=== PATIENT | male | born 1985 | race Caucasian/White ===

== ENCOUNTER → 2020-03-20 15:37 | Outpatient (CLI) | payer OTHER, MEDICAID, SELFPAY ==
--- NOTE | 2020-03-20 | DI.RAD.S_ITS ---
PROCEDURE: XR CHEST 2V INDICATIONS: CHEST PAIN WITH COUGH TECHNIQUE: 2 views of the chest were acquired. COMPARISON: None. FINDINGS: Surgical changes and devices: None. Lungs and pleura: Lungs are clear. No pleural effusions or pneumothorax. Mediastinum: Mediastinal contours are normal. Heart size is normal. Bones and chest wall: No suspicious bony abnormalities. Soft tissues appear unremarkable. IMPRESSION: No acute disease. Dictated by: Baldo Hameed M.D. on 03/20/2020 at 16:07 Approved by: Baldo Hameed M.D. on 03/20/2020 at 16:09
== END ==
PROVIDERS: PCP Student in an Organized Health Care Education/Training Program; Referring Provider Student in an Organized Health Care Education/Training Program; Visit Provider Student in an Organized Health Care Education/Training Program
DX: R07.9 Chest pain, unspecified (principal); R05 Cough
CPT/HCPCS: 71046

== ENCOUNTER 2021-04-04 13:53 | Inpatient (IN) | payer OTHER, MEDICAID, SELFPAY ==
[2021-04-04] VITALS (26 sets, daily range): BP systolic 105–148; BP diastolic 58–88; PULSE 94–117; RESP 22–47; TEMP 36.4–36.8; O2SAT 79–98; BMI 30.6
--- NOTE | 2021-04-04 14:16 | DI.RAD.S_ITS ---
PROCEDURE: XR CHEST 1V INDICATIONS: suspected sepsis TECHNIQUE: One view of the chest was acquired. COMPARISON: [facility], CR, XR CHEST 2V, 03/20/2020, 15:45. FINDINGS: Surgical changes and devices: None. Lungs and pleura: Patchy airspace opacities in bilateral mid to lower lung sue are seen. No pleural effusions or pneumothorax. Mediastinum: Mediastinal contours appear normal. Heart size is normal. Bones and chest wall: No suspicious bony lesions. Overlying soft tissues appear unremarkable. IMPRESSION: Finding is suggestive of bilateral mid to lower lung field infiltrates. No pleural effusion or pneumothorax. Dictated by: Jose Ayala M.D. on 04/04/2021 at 15:01 Approved by: Jose Ayala M.D. on 04/04/2021 at 15:02
--- NOTE | 2021-04-04 14:27 | ED.SOB ---
HPI - SOB/Dyspnea General Chief Complaint: Shortness of Breath/Dyspnea Stated Complaint: covid Time Seen by Provider: 04/04/21 14:07 Mode of arrival: Wheelchair History of Present Illness HPI Narrative: Patient is a 35-year-old male history of muscular dystrophy developmental delay presenting with hypoxia from primary care provider. Patient was seen by primary care provider today for mild diarrhea nausea vomiting nonproductive cough and fever for 5 days. Found to have an O2 of 83% on room air. He was sent to the ED for further evaluation. Patient and mother are both poor historians. Patient is complaining of dry throat. He is put on high-flow nasal cannula which does help. Related Data Home Medications Medication Instructions Recorded Confirmed omeprazole 20 mg capsule,delayed 20 mg PO QAM 04/04/21 04/04/21 release Allergies Allergy/AdvReac Type Severity Reaction Status Date / Time Sulfa (Sulfonamide Allergy Unknown Verified 04/04/21 14:34 Antibiotics) [SULFA (SULFONAMIDE ANTIBIOTICS)] promethazine [PROMETHAZINE] AdvReac Unknown Verified 04/04/21 14:34 Review of Systems Review of Systems ROS Unobtainable: Unobtainable due to medical condition and Unobtainable due to mental condition Patient History Medical History (Updated 04/04/21 @ 19:51 by Meryl Arango DO) Mild developmental delay Muscular dystrophy Social History household members: family and other Exam Initial Vital Signs Initial Vital Signs: Vital Signs Pulse Rate 113 H 04/04/21 14:08 Pulse Oximetry 85 L 04/04/21 14:08 GENERAL: Alert 35-year-old male with delay no acute distress HEENT: Head atraumatic,EOMI, pupils reactive, face symmetric, dry mucous membranes CARDIOVASCULAR: Regular rate and rhythm without murmurs, rubs or gallops. RESPIRATORY: Breath sounds equal bilaterally, no wheezes rales or rhonchi. ABDOMEN: Soft, nontender. Normoactive bowel sounds all 4 quadrants. No guarding or rebound. EXTREMITIES: Normal range of motion, no clubbing or edema. Neurovascularly intact NEUROLOGICAL: moving all extremities SKIN: Warm, dry, no laceration, no petechiae, no rashes or lesions. Course Orders Ordered: ED Orders 04/04/21 14:06 COVID19 - ADMIT ([employer] FINAL swab/PCR) Stat 04/04/21 14:15 Complete Blood Count AUTO DIFF Stat Comprehensive Metabolic Panel Stat D Dimer Stat Lactate (Lactic Acid) Stat Lipase Stat Procalcitonin Stat Prothrombin Time INR Stat Troponin & CK Cardiac Panel Stat 04/04/21 14:16 XR chest 1V Stat EKG-12 Lead Stat RT Consult Eval and Treat NOW 04/04/21 14:23 Blood Culture Stat 04/04/21 14:46 ABG [Arterial Blood Gas] Stat 04/04/21 15:24 CT angio chest PE protocol Stat 04/04/21 16:00 Ictotest Urine Stat Urinalysis and Microscopic Stat Urine Culture Stat 04/04/21 16:31 High flow/High humidity nasal NOW Acetaminophen (Acetaminophen 325 Mg Tablet) 650 mg PO Q6HR PRN PRN Reason: Fever Dexamethasone (Dexamethasone 10 Mg/Ml Vial) 6 mg IV DAILY QUINTIN Enoxaparin Sodium (Enoxaparin 40 Mg/0.4 Ml Syringe) 40 mg SUBCUT DAILY [facility] Dextrose/Sodium Chloride (Dextrose 5%-0.45% Ns) 1,000 mls @ 125 mls/hr IV CONT QUINTIN Last Admin: 04/04/21 18:44 Dose: 125 mls/hr Documented by: MSTEWART Remdesivir 100 mg/ Sodium (Chloride) 250 mls @ 250 mls/hr IV DAILY QUINTIN Stop: 04/08/21 09:59 Lorazepam (Lorazepam 2 Mg/Ml Inj) 2 mg IV Q6HR QUINTIN Morphine Sulfate (Morphine 2 Mg/Ml Inj) 2 mg IV Q4HR PRN PRN Reason: Pain, Mild (1-3) Naloxone HCl (Naloxone 0.4 Mg/Ml Vial) 0.2 mg IV Q2MIN PRN PRN Reason: Opiate Reversal Ondansetron HCl (Ondansetron 4 Mg/2 Ml Inj) 4 mg IV Q6HR PRN PRN Reason: Nausea And Vomiting Pantoprazole Sodium (Pantoprazole Dr 20 Mg Tablet) 20 mg PO 0600 QUINTIN Discontinued Medications Dexamethasone (Dexamethasone 10 Mg/Ml Vial) 6 mg IV NOW ONE Stop: 04/04/21 15:06 Last Admin: 04/04/21 15:39 Dose: 6 mg Documented by: NRHOVEL Sodium Chloride (Normal Saline 0.9%) 1,000 mls @ 1,000 mls/hr IV BOLUS ONE Stop: 04/04/21 15:14 Last Infusion: 04/04/21 16:25 Dose: 0 mls/hr Documented by: Admin: 04/04/21 14:35 Dose: 1,000 mls/hr Documented by: MALIK Sodium Chloride (Normal Saline 0.9%) 1,000 mls @ 1,000 mls/hr IV BOLUS ONE Stop: 04/04/21 15:26 Last Infusion: 04/04/21 17:16 Dose: 0 mls/hr Documented by: Admin: 04/04/21 15:39 Dose: 1,000 mls/hr Documented by: YEIMI Remdesivir 200 mg/ Sodium (Chloride) 250 mls @ 250 mls/hr IV NOW ONE Stop: 04/04/21 15:06 Last Infusion: 04/04/21 17:16 Dose: 0 mls/hr Documented by: Admin: 04/04/21 15:40 Dose: 250 mls/hr Documented by: YEIMI Lorazepam (Lorazepam 2 Mg/Ml Inj) 1 mg IV Q8HR PRN PRN Reason: air hunger Morphine Sulfate (Morphine 2 Mg/Ml Inj) 2 mg IV NOW ONE Stop: 04/04/21 14:31 Last Admin: 04/04/21 14:35 Dose: 2 mg Documented by: MALIK Ondansetron HCl (Ondansetron 4 Mg/2 Ml Inj) 4 mg IV NOW ONE Stop: 04/04/21 14:30 Last Admin: 04/04/21 14:35 Dose: 4 mg Documented by: MALIK Vital Signs Vital signs: Vital Signs - 8 hr 04/04/21 14:08 04/04/21 14:12 04/04/21 14:15 Temperature 98.3 F Pulse Rate 113 H 114 H 114 H Respiratory Rate 32 H Blood Pressure 127/73 Pulse Oximetry 85 L 79 L 94 04/04/21 14:30 04/04/21 14:45 04/04/21 15:00 Temperature Pulse Rate 115 H 112 H 111 H Respiratory Rate 47 H 37 H 38 H Blood Pressure 115/71 108/68 131/76 Pulse Oximetry 97 95 97 04/04/21 15:15 04/04/21 15:16 04/04/21 15:30 Temperature Pulse Rate 110 H 111 H 116 H Respiratory Rate 30 H 26 H 24 Blood Pressure 148/86 H 139/88 Pulse Oximetry 90 L 90 L 92 04/04/21 15:45 04/04/21 16:00 04/04/21 16:06 Temperature Pulse Rate 115 H 112 H 116 H Respiratory Rate 29 H 22 Blood Pressure 138/68 139/75 Pulse Oximetry 95 98 90 L 04/04/21 16:15 04/04/21 16:30 04/04/21 16:31 Temperature Pulse Rate 109 H 107 H 109 H Respiratory Rate 24 24 24 Blood Pressure 122/59 L 123/58 L 122/59 L Pulse Oximetry 91 91 91 04/04/21 16:43 04/04/21 16:45 Temperature Pulse Rate 114 H 117 H Respiratory Rate 24 26 H Blood Pressure 131/76 120/59 L Pulse Oximetry 91 93 MDM - SOB/Dyspnea Lab Data Result diagrams: 04/04/21 14:15 04/04/21 14:15 Labs: Lab Results 04/04/21 04/04/21 04/04/21 Range/Units 14:06 14:15 14:15 WBC 6.8 (4.5-11.0) X10^3/uL RBC 5.50 (4.5-5.9) X10^6/uL Hgb 13.4 L (13.5-17.5) g/dL Hct 41.4 (41-53) % MCV 75.3 L (80-100) fL MCH 24.4 L (26-34) PG MCHC 32.4 (30-36) % RDW 17.6 H (11.6-14.8) % Plt Count 195 (150-400) X10^3/uL Neut % (Auto) 82.4 H (50-75) % Lymph % (Auto) 10.1 L (25-40) % [place] % (Auto) 4.6 (3-14) % Eos % (Auto) 2.2 (2-4) % Baso % (Auto) 0.7 (0-2) % Neut # (Auto) 5600 (6138-8824) /uL Lymph # (Auto) 700 L (5851-2757) /uL [place] # (Auto) 300 (0-900) /uL Eos # (Auto) 100 (0-450) /uL Baso # (Auto) 0 (0-100) /uL PT (10.1-12.7) SECONDS INR (0.9-1.3) D-Dimer (<230) ng/mL ABG pH (7.35-7.45) ABG pCO2 (35-45) mmHg ABG pO2 (80-100) mmHg ABG HCO3 (22-26) mmol/L ABG Total CO2 (21-31) mmol/L ABG O2 Saturation (95-100) % ABG Base Excess (-2-2) mmol/L FiO2 Sodium 146 H (137-145) mmol/L Potassium 3.9 (3.4-5.1) mmol/L Chloride 112 H (98-107) mmol/L Carbon Dioxide 25 (22-32) mmol/L BUN 24 H (9-20) mg/dL Creatinine 1.11 (0.66-1.25) mg/dL Estimated GFR > 60.0 (>60) mL/min BUN/Creatinine Ratio 21.6 (6-22) Glucose 110 H (70-100) mg/dL Lactate (0.7-2.1) mmol/L Calcium 9.4 (8.4-10.2) mg/dL Total Bilirubin 0.7 (0.2-1.3) mg/dL AST 80 H (17-59) IU/L ALT 46 (<50) IU/L Alkaline Phosphatase 205 H (38-126) U/L Total Creatine Kinase (55-170) U/L CK-MB (CK-2) (<2.37) ng/mL CK-MB (CK-2) Rel Index (1.5-5.0) % Troponin I (0.01-0.034) ng/mL Total Protein 7.3 (6.3-8.2) g/dL Albumin 3.7 (3.5-5.0) g/dL Globulin 3.6 (1.7-4.1) g/dL Albumin/Globulin Ratio 1.0 (1.0-2.8) Lipase 116 (23-300) U/L Procalcitonin 1.18 H (<0.5) ng/mL Urine Color Urine Appearance Urine pH (4.5-8.0) Ur Specific [place] (1.000-1.035) Urine Protein (Negative) Urine Glucose (UA) (Negative) g/dL Urine Ketones (NEGATIVE) Urine Occult Blood (Negative) Urine Nitrate (Negative) Urine Bilirubin (NEGATIVE) Ur Bilirubin Confirm (Negative) Urine Urobilinogen (0.2) E.U./dL Ur Leukocyte Esterase (NEGATIVE) Urine RBC (0-5/HPF) Urine WBC (0-5/HPF) Ur Squamous Epith Cells (0-5/HPF) Other Crystals Urine Bacteria (None) Hyaline Casts (None) Granular Casts (None) Ur Culture Indicated? SARS-CoV-2 (PCR) Positive H (Negative) 04/04/21 04/04/21 04/04/21 Range/Units 14:15 14:15 14:15 WBC (4.5-11.0) X10^3/uL RBC (4.5-5.9) X10^6/uL Hgb (13.5-17.5) g/dL Hct (41-53) % MCV (80-100) fL MCH (26-34) PG MCHC (30-36) % RDW (11.6-14.8) % Plt Count (150-400) X10^3/uL Neut % (Auto) (50-75) % Lymph % (Auto) (25-40) % [place] % (Auto) (3-14) % Eos % (Auto) (2-4) % Baso % (Auto) (0-2) % Neut # (Auto) (7089-4557) /uL Lymph # (Auto) (5114-9194) /uL [place] # (Auto) (0-900) /uL Eos # (Auto) (0-450) /uL Baso # (Auto) (0-100) /uL PT 15.4 H (10.1-12.7) SECONDS INR 1.4 H (0.9-1.3) D-Dimer 654 H (<230) ng/mL ABG pH (7.35-7.45) ABG pCO2 (35-45) mmHg ABG pO2 (80-100) mmHg ABG HCO3 (22-26) mmol/L ABG Total CO2 (21-31) mmol/L ABG O2 Saturation (95-100) % ABG Base Excess (-2-2) mmol/L FiO2 Sodium (137-145) mmol/L Potassium (3.4-5.1) mmol/L Chloride (98-107) mmol/L Carbon Dioxide (22-32) mmol/L BUN (9-20) mg/dL Creatinine (0.66-1.25) mg/dL Estimated GFR (>60) mL/min BUN/Creatinine Ratio (6-22) Glucose (70-100) mg/dL Lactate 1.5 (0.7-2.1) mmol/L Calcium (8.4-10.2) mg/dL Total Bilirubin (0.2-1.3) mg/dL AST (17-59) IU/L ALT (<50) IU/L Alkaline Phosphatase (38-126) U/L Total Creatine Kinase 317 H (55-170) U/L CK-MB (CK-2) 1.00 (<2.37) ng/mL CK-MB (CK-2) Rel Index 0.3 L (1.5-5.0) % Troponin I 0.091 H (0.01-0.034) ng/mL Total Protein (6.3-8.2) g/dL Albumin (3.5-5.0) g/dL Globulin (1.7-4.1) g/dL Albumin/Globulin Ratio (1.0-2.8) Lipase (23-300) U/L Procalcitonin (<0.5) ng/mL Urine Color Urine Appearance Urine pH (4.5-8.0) Ur Specific [place] (1.000-1.035) Urine Protein (Negative) Urine Glucose (UA) (Negative) g/dL Urine Ketones (NEGATIVE) Urine Occult Blood (Negative) Urine Nitrate (Negative) Urine Bilirubin (NEGATIVE) Ur Bilirubin Confirm (Negative) Urine Urobilinogen (0.2) E.U./dL Ur Leukocyte Esterase (NEGATIVE) Urine RBC (0-5/HPF) Urine WBC (0-5/HPF) Ur Squamous Epith Cells (0-5/HPF) Other Crystals Urine Bacteria (None) Hyaline Casts (None) Granular Casts (None) Ur Culture Indicated? SARS-CoV-2 (PCR) (Negative) 04/04/21 04/04/21 Range/Units 14:46 16:00 WBC (4.5-11.0) X10^3/uL RBC (4.5-5.9) X10^6/uL Hgb (13.5-17.5) g/dL Hct (41-53) % MCV (80-100) fL MCH (26-34) PG MCHC (30-36) % RDW (11.6-14.8) % Plt Count (150-400) X10^3/uL Neut % (Auto) (50-75) % Lymph % (Auto) (25-40) % [place] % (Auto) (3-14) % Eos % (Auto) (2-4) % Baso % (Auto) (0-2) % Neut # (Auto) (4819-1243) /uL Lymph # (Auto) (7304-0418) /uL [place] # (Auto) (0-900) /uL Eos # (Auto) (0-450) /uL Baso # (Auto) (0-100) /uL PT (10.1-12.7) SECONDS INR (0.9-1.3) D-Dimer (<230) ng/mL ABG pH 7.42 (7.35-7.45) ABG pCO2 39.2 (35-45) mmHg ABG pO2 93 (80-100) mmHg ABG HCO3 25 (22-26) mmol/L ABG Total CO2 26 (21-31) mmol/L ABG O2 Saturation 97 (95-100) % ABG Base Excess 1.0 (-2-2) mmol/L FiO2 80 Sodium (137-145) mmol/L Potassium (3.4-5.1) mmol/L Chloride (98-107) mmol/L Carbon Dioxide (22-32) mmol/L BUN (9-20) mg/dL Creatinine (0.66-1.25) mg/dL Estimated GFR (>60) mL/min BUN/Creatinine Ratio (6-22) Glucose (70-100) mg/dL Lactate (0.7-2.1) mmol/L Calcium (8.4-10.2) mg/dL Total Bilirubin (0.2-1.3) mg/dL AST (17-59) IU/L ALT (<50) IU/L Alkaline Phosphatase (38-126) U/L Total Creatine Kinase (55-170) U/L CK-MB (CK-2) (<2.37) ng/mL CK-MB (CK-2) Rel Index (1.5-5.0) % Troponin I (0.01-0.034) ng/mL Total Protein (6.3-8.2) g/dL Albumin (3.5-5.0) g/dL Globulin (1.7-4.1) g/dL Albumin/Globulin Ratio (1.0-2.8) Lipase (23-300) U/L Procalcitonin (<0.5) ng/mL Urine Color Yellow Urine Appearance Clear Urine pH 5.0 (4.5-8.0) Ur Specific [place] 1.025 (1.000-1.035) Urine Protein 2+ H (Negative) Urine Glucose (UA) Negative (Negative) g/dL Urine Ketones Trace H (NEGATIVE) Urine Occult Blood Negative (Negative) Urine Nitrate Negative (Negative) Urine Bilirubin 2+ H (NEGATIVE) Ur Bilirubin Confirm Negative (Negative) Urine Urobilinogen 1.0 (0.2) E.U./dL Ur Leukocyte Esterase Negative (NEGATIVE) Urine RBC 0-1/hpf (0-5/HPF) Urine WBC 5-10/hpf H (0-5/HPF) Ur Squamous Epith Cells 0-1 /hpf (0-5/HPF) Other Crystals 2+ amorphous Urine Bacteria Few (2-10) H (None) Hyaline Casts 1-5/lpf (None) Granular Casts 30-100/lpf (None) Ur Culture Indicated? Specimen cultured SARS-CoV-2 (PCR) (Negative) Imaging Data Chest x-ray: Radiologist's Impression: PROCEDURE:? XR CHEST 1V ? INDICATIONS:? suspected sepsis ? TECHNIQUE:? One view of the chest was acquired.? ? COMPARISON:? [facility], , XR CHEST 2V, 03/20/2020, 15:45. ? FINDINGS:? ? Surgical changes and devices:? None.? ? Lungs and pleura:? Patchy airspace opacities in bilateral mid to lower lung sue are seen. No pleural effusions or pneumothorax.? ? Mediastinum:? Mediastinal contours appear normal.? Heart size is normal.? ? Bones and chest wall:? No suspicious bony lesions.? Overlying soft tissues appear unremarkable.? ? IMPRESSION:? Finding is suggestive of bilateral mid to lower lung field infiltrates.? No pleural effusion or pneumothorax. ? ? Dictated by: Jose Ayala M.D. on 04/04/2021 at 15:01 ? ? CT scan - chest: Radiologist's Impression: PROCEDURE:? CT ANGIO CHEST PE PROTOCOL ? INDICATIONS:? + covid very high dimer hypoxic ? TECHNIQUE:? After the administration of intravenous contrast, 2 mm thick sections acquired from the pulmonary apices to the posterior costophrenic angles.? 3-dimensional maximum intensity projection (MIP) coronal and sagittal reformats were then acquired through the thorax.? For radiation dose reduction, the following was used:? automated exposure control, adjustment of mA and/or kV according to patient size.? ? COMPARISON:? None. ? FINDINGS:? Image quality:? Excellent.? ? Pulmonary arteries:? Pulmonary arteries are normal in size, and demonstrate no intraluminal filling defects to suggest central pulmonary embolism.? ? Lungs and pleura:? Severe patchy bilateral mid and lower lung predominant airspace opacity.? No pleural effusions or pneumothorax.? Central and peripheral airways are patent.? ? Mediastinum:? Heart size is normal, without pericardial effusion.? No mediastinal or hilar adenopathy.? Thoracic aorta is normal in caliber and enhancement.? Esophagus is normal in caliber, without hiatal hernia.? ? Bones and chest wall:? No suspicious bony lesions.? Ribs and thoracic spine appear intact throughout.? Thyroid gland demonstrates bilateral nodules, largest of which is in the left lobe inferiorly measuring 30 mm diameter..? No axillary or supraclavicular adenopathy.? ? Abdomen:? Visualized upper abdominal solid organs appear normal in the early arterial phase of enhancement.? ? IMPRESSION:? 1. Bilateral pneumonia. 2. No pulmonary embolus.? ? ? Dictated by: Mario Sadler M.D. on 04/04/2021 at 17:48 ECG Data Interpretation: Sinus tachycardia rate 114 p.r. interval 162 QRS [address] changes MDM Narrative Medical decision making narrative: Patient is found to be COVID positive requiring high-flow nasal cannula. Discussion with both mom and dad at bedside his about code status he is currently a full code. They are agreeable to him to severe dexamethasone. The patient has elevated D-dimer fortunately CT is negative for pulmonary embolism. Troponin is also indeterminate without EKG changes most likely secondary to stress. Dr. Bolivar obtain patient's symptoms test results, accepts patient Discharge Plan Departure Patient Disposition: Admitted As Inpatient Clinical Impression: COVID-19, Respiratory failure Admit Date/Time: 04/04/21 16:46 Admit Provider: Karissa Bolivar
[2021-04-04 14:31] LABS: Add Manual Diff / Slide Review NO; Basophils Absolute Auto 0 /uL (0-100); Basophils Percent Auto 0.7 % (0-2); Eosinophils Absolute Auto 100 /uL (0-450); Eosinophils Percent Auto 2.2 % (2-4); Hematocrit 41.4 % (41-53); Hemoglobin 13.4 g/dL (13.5-17.5); Lymphocytes Absolute Auto 700 /uL (1100-4500); Lymphocytes Percent Auto 10.1 % (25-40); Mean Corpuscular HGB Conc 32.4 % (30-36); Mean Corpuscular Hemoglobin 24.4 PG (26-34); Mean Corpuscular Volume 75.3 fL (80-100); Monocytes Absolute Auto 300 /uL (0-900); Monocytes Percent Auto 4.6 % (3-14); Neutrophils Absolute Auto 5600 /uL (1500-7000); Neutrophils Percent Auto 82.4 % (50-75); Platelet Count 195 X10^3/uL (150-400); Red Cell Distribution Width 17.6 % (11.6-14.8); White Blood Cell Count 6.8 X10^3/uL (4.5-11.0)
[2021-04-04] MEDS: ONDANSETRON 4 MG/2 ML INJ IV (14:35)
[2021-04-04] MEDS: SODIUM CHLORIDE 0.9% 1,000 ML 1000 ML IV ×2 (14:35→15:39)
[2021-04-04] MEDS: MORPHINE 2 MG/ML INJ IV (14:35)
[2021-04-04 14:48] LABS: INR 1.4 (0.9-1.3); Prothrombin Time 15.4 SECONDS (10.1-12.7)
[2021-04-04 14:51] LABS: D Dimer 654 ng/mL (<230)
[2021-04-04 14:53] LABS: Creatine Kinase 317 U/L (55-170)
[2021-04-04 14:55] LABS: Alanine Aminotransferase 46 IU/L (<50); Albumin 3.7 g/dL (3.5-5.0); Alkaline Phosphatase 205 U/L (38-126); Aspartate Aminotransferase 80 IU/L (17-59); BUN Creatinine Ratio 21.6 (6-22); Bilirubin Total 0.7 mg/dL (0.2-1.3); Blood Urea Nitrogen 24 mg/dL (9-20); Calcium 9.4 mg/dL (8.4-10.2); Carbon Dioxide 25 mmol/L (22-32); Chloride 112 mmol/L (98-107); Estimated Glomerular Filt Rate > 60.0 mL/min (>60); Globulin 3.6 g/dL (1.7-4.1); Glucose 110 mg/dL (70-100); HEMOLYSIS < 15 (0-50); Lactate (Lactic Acid) 1.5 mmol/L (0.7-2.1); Lipase 116 U/L (23-300); Potassium 3.9 mmol/L (3.4-5.1); Sodium 146 mmol/L (137-145); Total Protein 7.3 g/dL (6.3-8.2)
[2021-04-04 15:06] LABS: Troponin I 0.091 ng/mL (0.01-0.034)
[2021-04-04 15:09] LABS: CKMB % Relative Index 0.3 % (1.5-5.0)
[2021-04-04 15:12] LABS: Procalcitonin 1.18 ng/mL (<0.5)
[2021-04-04 15:18] LABS: COVID19 - ADMIT (NP swab/PCR) POSITIVE (Negative)
--- NOTE | 2021-04-04 15:24 | DI.CT.S_ITS ---
PROCEDURE: CT ANGIO CHEST PE PROTOCOL INDICATIONS: + covid very high dimer hypoxic TECHNIQUE: After the administration of intravenous contrast, 2 mm thick sections acquired from the pulmonary apices to the posterior costophrenic angles. 3-dimensional maximum intensity projection (MIP) coronal and sagittal reformats were then acquired through the thorax. For radiation dose reduction, the following was used: automated exposure control, adjustment of mA and/or kV according to patient size. COMPARISON: None. FINDINGS: Image quality: Excellent. Pulmonary arteries: Pulmonary arteries are normal in size, and demonstrate no intraluminal filling defects to suggest central pulmonary embolism. Lungs and pleura: Severe patchy bilateral mid and lower lung predominant airspace opacity. No pleural effusions or pneumothorax. Central and peripheral airways are patent. Mediastinum: Heart size is normal, without pericardial effusion. No mediastinal or hilar adenopathy. Thoracic aorta is normal in caliber and enhancement. Esophagus is normal in caliber, without hiatal hernia. Bones and chest wall: No suspicious bony lesions. Ribs and thoracic spine appear intact throughout. Thyroid gland demonstrates bilateral nodules, largest of which is in the left lobe inferiorly measuring 30 mm diameter.. No axillary or supraclavicular adenopathy. Abdomen: Visualized upper abdominal solid organs appear normal in the early arterial phase of enhancement. IMPRESSION: 1. Bilateral pneumonia. 2. No pulmonary embolus. Dictated by: Mario Sadler M.D. on 04/04/2021 at 17:48 Approved by: Mario Sadler M.D. on 04/04/2021 at 17:49
[2021-04-04] MEDS: DEXAMETHASONE 10 MG/ML VIAL 6 MG IV (15:39)
[2021-04-04] MEDS: REMDESIVIR 200 MG in SODIUM CHLORIDE 0.9% 210 ML 250 ML IV (15:40)
[2021-04-04 16:41] LABS: Appearance Urine UA CLEAR; Bilirubin Urine UA 2+ (NEGATIVE); Color Urine UA YELLOW; Glucose Urine UA NEGATIVE (Negative); Ketones Urine UA TRACE (NEGATIVE); Leukocyte Esterase Urine UA NEGATIVE (NEGATIVE); Nitrite Urine UA NEGATIVE (Negative); Occult Blood Urine UA NEGATIVE (Negative); Protein Urine UA 2+ (Negative); Specific Gravity Urine UA 1.025 (1.000-1.035)
--- NOTE | 2021-04-04 17:06 | P.HP_ITS ---
History of Present Illness History of Present Illness Date Patient Seen: 04/04/21 Time Patient Seen: 17:07 Chief complaint: covid Narrative: 35-year-old male is admitted from the ED secondary to severe COVID. He was seen in the clinic today with mild diarrhea, severe nausea, vomiting, nonproductive cough, and fevers x 5 days. He has received a full 2 course set of COVID vaccines but is not yet boosted. Vital signs upon presentation included temperature of 98.3?, pulse 113, respirations 32, blood pressure 127/73 and O2 saturation 79% on room air. Patient was immediately started on high-flow oxygen and administered dexamethasone and remdesivir. He also received a bolus of IV fluids and 2 mg of morphine and 4 mg of IV Zofran. Labs significant for an el evated D-dimer at 654 and PT/ INR. Other elevations included troponin I at 0.091, AST 205, alk-phos 80, procalcitonin 1.18, total CK 317. Chest x-ray showed bilateral mid to lower lung lobe infiltrates. Chest CT is pending. Past medical history: Muscular dystrophy Developmental delay Neurogenic constipation Thyroid nodule, left Right bundle-branch block Hyperlipidemia GERD Allergies Obesity Past Surgical History: Mandible Fracture repair(2004) Appendectomy post rupture, drains. 05/09, [facility] Eye surgery, cataracts Arm fracture repair Hernia repair, age 3 Undescended testicle repair, childhood Oral surgery Family history: Mother: Muscular dystrophy Social History: Single, lives with Tia Tapia (05/21/66) Mom, Narayan Tapia (02/09/62) Dad, Hammad Tapia (02/10/06) brother. Patient History Family & Social History Safety & Behavioral: Feels Safe in Current Yes Environment Been Physically Hurt or No Threatened By a Person Meds Home Medications and Allergies Home Medications Medication Instructions Recorded Confirmed Type omeprazole 20 mg capsule,delayed 20 mg PO QAM 04/04/21 04/04/21 History release Allergies Allergy/AdvReac Type Severity Reaction Status Date / Time Sulfa (Sulfonamide Allergy Unknown Verified 04/04/21 14:34 Antibiotics) [SULFA (SULFONAMIDE ANTIBIOTICS)] promethazine [PROMETHAZINE] AdvReac Unknown Verified 04/04/21 14:34 Review of Systems Review of Systems Narrative: All remaining ROS were reviewed and negative except as addressed. Exam Vital Signs (past 8 hours): - 04/04/21 14:08 04/04/21 14:12 04/04/21 14:15 Temperature 98.3 F Pulse Rate 113 H 114 H 114 H Respiratory Rate 32 H Blood Pressure 127/73 Pulse Oximetry 85 L 79 L 94 04/04/21 14:30 04/04/21 14:45 04/04/21 15:00 Temperature Pulse Rate 115 H 112 H 111 H Respiratory Rate 47 H 37 H 38 H Blood Pressure 115/71 108/68 131/76 Pulse Oximetry 97 95 97 04/04/21 15:15 04/04/21 15:16 04/04/21 15:30 Temperature Pulse Rate 110 H 111 H 116 H Respiratory Rate 30 H 26 H 24 Blood Pressure 148/86 H 139/88 Pulse Oximetry 90 L 90 L 92 04/04/21 15:45 04/04/21 16:00 04/04/21 16:06 Temperature Pulse Rate 115 H 112 H 116 H Respiratory Rate 29 H 22 Blood Pressure 138/68 139/75 Pulse Oximetry 95 98 90 L 04/04/21 16:15 04/04/21 16:31 04/04/21 16:43 Temperature Pulse Rate 109 H 109 H 114 H Respiratory Rate 24 24 24 Blood Pressure 122/59 L 122/59 L 131/76 Pulse Oximetry 91 91 91 Oxygen Delivery Method Non -Rebreather Oxygen Flow Rate 15 Narrative Exam Narrative: GENERAL: Alert and oriented, appearing stated age, high-flow nasal cannula in place. HEENT: Head normocephalic/atraumatic. Extraocular movements intact. LUNGS: Diminished inspiratory effort with expiratory wheezes heard throughout. CV: Normal S1 and S2 with tachycardic rate and regular rhythm, no audible murmurs, rubs or gallops. ABDOMEN: Soft, non-tender, non-distended, no organomegaly. Positive bowel sounds. EXTREMITIES: No clubbing, cyanosis, or edema. NEURO: Hypotonic, generalized, dysphonic. PSYCH: Alert and oriented x 3. SKIN: No concerning lesions. Objective Labs Result Diagrams: 04/04/21 14:15 04/04/21 14:15 Labs: Laboratory Results - last 24 hr 04/04/21 04/04/21 04/04/21 14:06 14:15 14:15 WBC 6.8 RBC 5.50 Hgb 13.4 L Hct 41.4 MCV 75.3 L MCH 24.4 L MCHC 32.4 RDW 17.6 H Plt Count 195 Neut % (Auto) 82.4 H Lymph % (Auto) 10.1 L [place] % (Auto) 4.6 Eos % (Auto) 2.2 Baso % (Auto) 0.7 Neut # (Auto) 5600 Lymph # (Auto) 700 L [place] # (Auto) 300 Eos # (Auto) 100 Baso # (Auto) 0 PT INR D-Dimer Sodium 146 H Potassium 3.9 Chloride 112 H Carbon Dioxide 25 BUN 24 H Creatinine 1.11 Estimated GFR > 60.0 BUN/Creatinine Ratio 21.6 Glucose 110 H Lactate Calcium 9.4 Total Bilirubin 0.7 AST 80 H ALT 46 Alkaline Phosphatase 205 H Total Creatine Kinase CK-MB (CK-2) CK-MB (CK-2) Rel Index Troponin I Total Protein 7.3 Albumin 3.7 Globulin 3.6 Albumin/Globulin Ratio 1.0 Lipase 116 Procalcitonin 1.18 H SARS-CoV-2 (PCR) Positive H 04/04/21 04/04/21 04/04/21 14:15 14:15 14:15 WBC RBC Hgb Hct MCV MCH MCHC RDW Plt Count Neut % (Auto) Lymph % (Auto) [place] % (Auto) Eos % (Auto) Baso % (Auto) Neut # (Auto) Lymph # (Auto) [place] # (Auto) Eos # (Auto) Baso # (Auto) PT 15.4 H INR 1.4 H D-Dimer 654 H Sodium Potassium Chloride Carbon Dioxide BUN Creatinine Estimated GFR BUN/Creatinine Ratio Glucose Lactate 1.5 Calcium Total Bilirubin AST ALT Alkaline Phosphatase Total Creatine Kinase 317 H CK-MB (CK-2) 1.00 CK-MB (CK-2) Rel Index 0.3 L Troponin I 0.091 H Total Protein Albumin Globulin Albumin/Globulin Ratio Lipase Procalcitonin SARS-CoV-2 (PCR) Assessment & Plan Assessment & Plan narrative: 1. Acute hypoxic respiratory failure secondary to COVID pneumonia Plan: Remdesivir, dexamethasone, high-flow nasal cannula. RT consult. Will trend labs. Supportive intensive therapy. 2. Acute dehydration secondary to diarrhea from COVID. Plan: IV fluids, Zofran. Please see #1. 3. Muscular dystrophy, myotonic Plan: Patient is at high risk For AL secondary to underlying cardiac conduction abnormalities from his MD. He is also at high risk for intubation secondary to his weakened respiratory muscles. Due to his dysphagia, he is also at risk for aspiration pneumonia, will get ST consult. Bedside swallow evaluation prior to advancing diet. If patient decompensates and is unable to be supported at our hospital, recommend early rather than late transport for higher level of care, if possible and available. 4. Elevated cardiac enzymes, new Plan: Please see #3. Will trend labs. Telemetry. 4. GERD, chronic Plan: Continue home omeprazole. 5. Developmental delay Plan: Supportive care. Code: Full COVID: Positive FEN: Regular, D5 1/2 NS at 125 cc/hour DVT: lovenox GI: omeprazole Dispo: Anticipate 2+ nights.
[2021-04-04 17:13] LABS: Ictotest Urine Negative (Negative)
[2021-04-04 17:14] LABS: RBC Urine 0-1/HPF (0-5/HPF); Squamous Epithelial Cell Urine 0-1 /HPF (0-5/HPF); WBC Urine 5-10/HPF (0-5/HPF)
[2021-04-04 17:15] LABS: PCO2 ABG 39.2 mmHg (35-45); pH ABG 7.42 (7.35-7.45)
[2021-04-04 17:15] LABS: Bacteria Urine Few (2-10); Culture Indicated Urine Specimen Cultured; Granular Casts Urine 30-100/LPF; Hyaline Casts Urine 1-5/LPF
[2021-04-04 17:16] LABS: HCO3 ABG 25 mmol/L (22-26); Oxygen Saturation ABG 97 % (95-100); PO2 ABG 93 mmHg (80-100); TCO2 ABG 26 mmol/L (21-31)
[2021-04-04] MEDS: LORazepam 2 MG/ML INJ (18:41)
[2021-04-04] MEDS: DEXTROSE 5%-0.45% NS 1,000 ML 125 ML IV (18:44)
[2021-04-04] MEDS: LORazepam 2 MG/ML INJ IV ×2 (19:49→23:22)
[2021-04-04 19:56] LABS: Troponin I 0.104 ng/mL (0.01-0.034)
--- NOTE | 2021-04-04 21:09 | PM.CN.EICU ---
History of Present Illness Consult details Chief complaint: covid :: This patient was seen via real time interactive two-way audiovisual telecommunication. Narrative: 35 y.o. male w/ PMHx of developmental delay, muscular dystrophy and GERD who was brought to ED with 5 days of non-productive cough and fever. He was COVID-19 (+). Urine was also suggestive of a UTI with an elevated procalcitonin. [facility] Medical History Mild developmental delay Muscular dystrophy Social History household members: family and other Current Medications Current Medications Medications: Home Medications omeprazole 20 mg capsule,delayed release 20 mg PO QAM 04/04/21 [History Confirmed 04/04/21] Visit Medications (administered) Generic Name Dose Route Start Last Admin Trade Name Freq PRN Reason Stop Dose Admin Lorazepam 2 mg 04/04/21 19:30 04/04/21 19:49 Lorazepam 2 Mg/Ml Inj IV 2 mg Q6HR QUINTIN Administration Exam Vital Signs (past 8 hours): - 04/04/21 14:08 04/04/21 14:12 04/04/21 14:15 Temperature 98.3 F Pulse Rate 113 H 114 H 114 H Respiratory Rate 32 H Blood Pressure 127/73 Pulse Oximetry 85 L 79 L 94 04/04/21 14:30 04/04/21 14:45 04/04/21 15:00 Temperature Pulse Rate 115 H 112 H 111 H Respiratory Rate 47 H 37 H 38 H Blood Pressure 115/71 108/68 131/76 Pulse Oximetry 97 95 97 04/04/21 15:15 04/04/21 15:16 04/04/21 15:30 Temperature Pulse Rate 110 H 111 H 116 H Respiratory Rate 30 H 26 H 24 Blood Pressure 148/86 H 139/88 Pulse Oximetry 90 L 90 L 92 04/04/21 15:45 04/04/21 16:00 04/04/21 16:06 Temperature Pulse Rate 115 H 112 H 116 H Respiratory Rate 29 H 22 Blood Pressure 138/68 139/75 Pulse Oximetry 95 98 90 L 04/04/21 16:15 04/04/21 16:30 04/04/21 16:31 Temperature Pulse Rate 109 H 107 H 109 H Respiratory Rate 24 24 24 Blood Pressure 122/59 L 123/58 L 122/59 L Pulse Oximetry 91 91 91 04/04/21 16:43 04/04/21 16:45 04/04/21 17:00 Temperature Pulse Rate 114 H 117 H 104 H Respiratory Rate 24 26 H 24 Blood Pressure 131/76 120/59 L 114/60 Pulse Oximetry 91 93 92 04/04/21 17:52 04/04/21 19:00 04/04/21 19:24 Temperature 97.6 F 97.6 F Pulse Rate 102 H 106 H 106 H Respiratory Rate 24 27 H 27 H Blood Pressure 130/65 130/65 Pulse Oximetry 92 92 92 04/04/21 20:15 Temperature Pulse Rate 101 H Respiratory Rate 38 H Blood Pressure 130/74 Pulse Oximetry 93 Fraction of Inspired Oxygen 54 Oxygen Delivery Method Non -Rebreather Oxygen Flow Rate 50 Const General: comfortable Chest Other: On HFNC 50 L/min with 54% FiO2. RR in 30s at times. Saturating 93% Cardio Other: ST in low 100s Objective Labs Result Diagrams: 04/04/21 14:15 04/04/21 14:15 Labs: Laboratory Results - last 24 hr 04/04/21 04/04/21 04/04/21 14:06 14:15 14:15 WBC 6.8 RBC 5.50 Hgb 13.4 L Hct 41.4 MCV 75.3 L MCH 24.4 L MCHC 32.4 RDW 17.6 H Plt Count 195 Neut % (Auto) 82.4 H Lymph % (Auto) 10.1 L [place] % (Auto) 4.6 Eos % (Auto) 2.2 Baso % (Auto) 0.7 Neut # (Auto) 5600 Lymph # (Auto) 700 L [place] # (Auto) 300 Eos # (Auto) 100 Baso # (Auto) 0 PT INR D-Dimer ABG pH ABG pCO2 ABG pO2 ABG HCO3 ABG Total CO2 ABG O2 Saturation ABG Base Excess FiO2 Sodium 146 H Potassium 3.9 Chloride 112 H Carbon Dioxide 25 BUN 24 H Creatinine 1.11 Estimated GFR > 60.0 BUN/Creatinine Ratio 21.6 Glucose 110 H Lactate Calcium 9.4 Total Bilirubin 0.7 AST 80 H ALT 46 Alkaline Phosphatase 205 H Total Creatine Kinase CK-MB (CK-2) CK-MB (CK-2) Rel Index Troponin I Total Protein 7.3 Albumin 3.7 Globulin 3.6 Albumin/Globulin Ratio 1.0 Lipase 116 Procalcitonin 1.18 H Urine Color Urine Appearance Urine pH Ur Specific [place] Urine Protein Urine Glucose (UA) Urine Ketones Urine Occult Blood Urine Nitrate Urine Bilirubin Ur Bilirubin Confirm Urine Urobilinogen Ur Leukocyte Esterase Urine RBC Urine WBC Ur Squamous Epith Cells Other Crystals Urine Bacteria Hyaline Casts Granular Casts Ur Culture Indicated? Nasal Screen MRSA (PCR) SARS-CoV-2 (PCR) Positive H 04/04/21 04/04/21 04/04/21 14:15 14:15 14:15 WBC RBC Hgb Hct MCV MCH MCHC RDW Plt Count Neut % (Auto) Lymph % (Auto) [place] % (Auto) Eos % (Auto) Baso % (Auto) Neut # (Auto) Lymph # (Auto) [place] # (Auto) Eos # (Auto) Baso # (Auto) PT 15.4 H INR 1.4 H D-Dimer 654 H ABG pH ABG pCO2 ABG pO2 ABG HCO3 ABG Total CO2 ABG O2 Saturation ABG Base Excess FiO2 Sodium Potassium Chloride Carbon Dioxide BUN Creatinine Estimated GFR BUN/Creatinine Ratio Glucose Lactate 1.5 Calcium Total Bilirubin AST ALT Alkaline Phosphatase Total Creatine Kinase 317 H CK-MB (CK-2) 1.00 CK-MB (CK-2) Rel Index 0.3 L Troponin I 0.091 H Total Protein Albumin Globulin Albumin/Globulin Ratio Lipase Procalcitonin Urine Color Urine Appearance Urine pH Ur Specific [place] Urine Protein Urine Glucose (UA) Urine Ketones Urine Occult Blood Urine Nitrate Urine Bilirubin Ur Bilirubin Confirm Urine Urobilinogen Ur Leukocyte Esterase Urine RBC Urine WBC Ur Squamous Epith Cells Other Crystals Urine Bacteria Hyaline Casts Granular Casts Ur Culture Indicated? Nasal Screen MRSA (PCR) SARS-CoV-2 (PCR) 04/04/21 04/04/21 04/04/21 14:46 16:00 18:32 WBC RBC Hgb Hct MCV MCH MCHC RDW Plt Count Neut % (Auto) Lymph % (Auto) [place] % (Auto) Eos % (Auto) Baso % (Auto) Neut # (Auto) Lymph # (Auto) [place] # (Auto) Eos # (Auto) Baso # (Auto) PT INR D-Dimer ABG pH 7.42 ABG pCO2 39.2 ABG pO2 93 ABG HCO3 25 ABG Total CO2 26 ABG O2 Saturation 97 ABG Base Excess 1.0 FiO2 80 Sodium Potassium Chloride Carbon Dioxide BUN Creatinine Estimated GFR BUN/Creatinine Ratio Glucose Lactate Calcium Total Bilirubin AST ALT Alkaline Phosphatase Total Creatine Kinase CK-MB (CK-2) CK-MB (CK-2) Rel Index Troponin I Total Protein Albumin Globulin Albumin/Globulin Ratio Lipase Procalcitonin Urine Color Yellow Urine Appearance Clear Urine pH 5.0 Ur Specific [place] 1.025 Urine Protein 2+ H Urine Glucose (UA) Negative Urine Ketones Trace H Urine Occult Blood Negative Urine Nitrate Negative Urine Bilirubin 2+ H Ur Bilirubin Confirm Negative Urine Urobilinogen 1.0 Ur Leukocyte Esterase Negative Urine RBC 0-1/hpf Urine WBC 5-10/hpf H Ur Squamous Epith Cells 0-1 /hpf Other Crystals 2+ amorphous Urine Bacteria Few (2-10) H Hyaline Casts 1-5/lpf Granular Casts 30-100/lpf Ur Culture Indicated? Specimen cultured Nasal Screen MRSA (PCR) Negative for mrsa SARS-CoV-2 (PCR) 04/04/21 19:05 WBC RBC Hgb Hct MCV MCH MCHC RDW Plt Count Neut % (Auto) Lymph % (Auto) [place] % (Auto) Eos % (Auto) Baso % (Auto) Neut # (Auto) Lymph # (Auto) [place] # (Auto) Eos # (Auto) Baso # (Auto) PT INR D-Dimer ABG pH ABG pCO2 ABG pO2 ABG HCO3 ABG Total CO2 ABG O2 Saturation ABG Base Excess FiO2 Sodium Potassium Chloride Carbon Dioxide BUN Creatinine Estimated GFR BUN/Creatinine Ratio Glucose Lactate Calcium Total Bilirubin AST ALT Alkaline Phosphatase Total Creatine Kinase CK-MB (CK-2) CK-MB (CK-2) Rel Index Troponin I 0.104 H Total Protein Albumin Globulin Albumin/Globulin Ratio Lipase Procalcitonin Urine Color Urine Appearance Urine pH Ur Specific [place] Urine Protein Urine Glucose (UA) Urine Ketones Urine Occult Blood Urine Nitrate Urine Bilirubin Ur Bilirubin Confirm Urine Urobilinogen Ur Leukocyte Esterase Urine RBC Urine WBC Ur Squamous Epith Cells Other Crystals Urine Bacteria Hyaline Casts Granular Casts Ur Culture Indicated? Nasal Screen MRSA (PCR) SARS-CoV-2 (PCR) Assessment & Plan Assessment and plan (1) Acute hypoxemic respiratory failure due to COVID-19: Status: Acute Plan: -Continue dexamethasone, HFNC and remdesivir -Added baricitinib -Fluid-conservative strategy --> changed IVF to LR and lowered rate (2) Abnormal urinalysis: Status: Acute Plan: -Add ceftriaxone pending urine culture; will also start azithromycin for atypical pulmonary coverage Time Spent With Patient Critical Care time: I spent a total of 35 minutes of critical care time on this patient's care today; this time is exclusive of procedural time.
[2021-04-04] MEDS: LACTATED RINGERS 1,000 ML 42 ML IV (21:38)
[2021-04-04] MEDS: cefTRIAXone 1,000 MG in SODIUM CHLORIDE 0.9% 100 ML 200 ML IV (21:38)
[2021-04-04] MEDS: AZITHROMYCIN 500 MG in DEXTROSE 5% IN WATER 250 ML IV (22:30)
[2021-04-05] VITALS (23 sets, daily range): BP systolic 91–125; BP diastolic 53–78; PULSE 60–108; RESP 12–30; TEMP 36.3–36.7; O2SAT 90–96
[2021-04-05 03:13] LABS: Alanine Aminotransferase 40 IU/L (<50); Albumin Globulin Ratio 0.9 (1.0-2.8); Alkaline Phosphatase 145 U/L (38-126); Aspartate Aminotransferase 56 IU/L (17-59); BUN Creatinine Ratio 21.8 (6-22); Bilirubin Total 0.5 mg/dL (0.2-1.3); Blood Urea Nitrogen 17 mg/dL (9-20); Calcium 8.5 mg/dL (8.4-10.2); Carbon Dioxide 29 mmol/L (22-32); Chloride 115 mmol/L (98-107); Creatine Kinase 261 U/L (55-170); Estimated Glomerular Filt Rate > 60.0 mL/min (>60); Globulin 3.3 g/dL (1.7-4.1); Glucose 155 mg/dL (70-100); HEMOLYSIS < 15 (0-50); Potassium 3.9 mmol/L (3.4-5.1); Sodium 146 mmol/L (137-145); Total Protein 6.3 g/dL (6.3-8.2)
[2021-04-05 03:19] LABS: Add Manual Diff / Slide Review NO; Basophils Absolute Auto 0 /uL (0-100); Basophils Percent Auto 0.5 % (0-2); Eosinophils Absolute Auto 0 /uL (0-450); Eosinophils Percent Auto 0.1 % (2-4); Hemoglobin 11.6 g/dL (13.5-17.5); Lymphocytes Absolute Auto 500 /uL (1100-4500); Lymphocytes Percent Auto 11.9 % (25-40); Mean Corpuscular HGB Conc 32.3 % (30-36); Mean Corpuscular Hemoglobin 24.3 PG (26-34); Mean Corpuscular Volume 75.2 fL (80-100); Monocytes Absolute Auto 100 /uL (0-900); Monocytes Percent Auto 2.9 % (3-14); Neutrophils Absolute Auto 3300 /uL (1500-7000); Neutrophils Percent Auto 84.6 % (50-75); Platelet Count 139 X10^3/uL (150-400); Red Blood Cell Count 4.79 X10^6/uL (4.5-5.9); Red Cell Distribution Width 17.4 % (11.6-14.8); White Blood Cell Count 3.9 X10^3/uL (4.5-11.0)
[2021-04-05 03:25] LABS: Troponin I 0.064 ng/mL (0.01-0.034)
[2021-04-05] MEDS: MORPHINE 2 MG/ML INJ IV ×2 (03:55→19:54)
[2021-04-05] MEDS: LORazepam 2 MG/ML INJ IV (05:43)
[2021-04-05] MEDS: PANTOPRAZOLE DR 20 MG TABLET PO (05:43)
[2021-04-05] MEDS: REMDESIVIR 100 MG in SODIUM CHLORIDE 0.9% 230 ML 250 ML IV (09:02)
[2021-04-05] MEDS: DEXAMETHASONE 10 MG/ML VIAL 6 MG IV (09:03)
[2021-04-05] MEDS: ENOXAPARIN 40 MG/0.4 ML SYRINGE SUBCUT (09:04)
--- NOTE | 2021-04-05 09:56 | PM.PN.EICU ---
Subjective Subjective :: This patient was seen via real time interactive two-way audiovisual telecommunication. On HFNC 50L & 65% Current Medications Current Medications Medications: Home Medications omeprazole 20 mg capsule,delayed release 20 mg PO QAM 04/04/21 [History Confirmed 04/04/21] Visit Medications (administered) Generic Name Dose Route Start Last Admin Trade Name Freq PRN Reason Stop Dose Admin Dexamethasone 6 mg 04/05/21 09:00 04/05/21 09:03 Dexamethasone 10 Mg/Ml Vial IV 6 mg DAILY QUINTIN Administration Enoxaparin Sodium 40 mg 04/05/21 09:00 04/05/21 09:04 Enoxaparin 40 Mg/0.4 Ml Syringe SUBCUT 40 mg DAILY QUINTIN Administration Remdesivir 100 mg/ Sodium 250 mls @ 250 mls/hr 04/05/21 09:00 04/05/21 09:02 Chloride IV 04/08/21 09:59 250 mls/hr DAILY QUINTIN Administration Lactated Ringer's 1,000 mls @ 42 mls/hr 04/04/21 21:00 04/04/21 21:38 Lactated Ringers IV 42 mls/hr CONT QUINTIN Administration Ceftriaxone Sodium 1,000 mg/ 100 mls @ 200 mls/hr 04/04/21 21:15 04/04/21 22:30 Sodium Chloride IV Infused Q24H QUINTIN Infusion Azithromycin 500 mg/ Dextrose 250 mls @ 250 mls/hr 04/04/21 21:15 04/04/21 23:35 IV 04/08/21 21:16 Infused Q24H QUINTIN Infusion Morphine Sulfate 2 mg 04/04/21 18:08 04/05/21 03:55 Morphine 2 Mg/Ml Inj IV 2 mg Q4HR PRN Administration Pain, Mild (1-3) Pantoprazole Sodium 20 mg 04/05/21 06:00 04/05/21 05:[address] 20 Mg Tablet PO 20 mg 0600 QUINTIN Administration Objective Labs Result Diagrams: 04/05/21 02:35 04/05/21 02:35 Labs: Laboratory Results - last 24 hr 04/04/21 04/04/21 04/04/21 14:06 14:15 14:15 WBC 6.8 RBC 5.50 Hgb 13.4 L Hct 41.4 MCV 75.3 L MCH 24.4 L MCHC 32.4 RDW 17.6 H Plt Count 195 Neut % (Auto) 82.4 H Lymph % (Auto) 10.1 L [place] % (Auto) 4.6 Eos % (Auto) 2.2 Baso % (Auto) 0.7 Neut # (Auto) 5600 Lymph # (Auto) 700 L [place] # (Auto) 300 Eos # (Auto) 100 Baso # (Auto) 0 PT INR D-Dimer ABG pH ABG pCO2 ABG pO2 ABG HCO3 ABG Total CO2 ABG O2 Saturation ABG Base Excess FiO2 Sodium 146 H Potassium 3.9 Chloride 112 H Carbon Dioxide 25 BUN 24 H Creatinine 1.11 Estimated GFR > 60.0 BUN/Creatinine Ratio 21.6 Glucose 110 H Lactate Calcium 9.4 Total Bilirubin 0.7 AST 80 H ALT 46 Alkaline Phosphatase 205 H Total Creatine Kinase CK-MB (CK-2) CK-MB (CK-2) Rel Index Troponin I Total Protein 7.3 Albumin 3.7 Globulin 3.6 Albumin/Globulin Ratio 1.0 Lipase 116 Procalcitonin 1.18 H Urine Color Urine Appearance Urine pH Ur Specific [place] Urine Protein Urine Glucose (UA) Urine Ketones Urine Occult Blood Urine Nitrate Urine Bilirubin Ur Bilirubin Confirm Urine Urobilinogen Ur Leukocyte Esterase Urine RBC Urine WBC Ur Squamous Epith Cells Other Crystals Urine Bacteria Hyaline Casts Granular Casts Ur Culture Indicated? Nasal Screen MRSA (PCR) SARS-CoV-2 (PCR) Positive H 04/04/21 04/04/21 04/04/21 14:15 14:15 14:15 WBC RBC Hgb Hct MCV MCH MCHC RDW Plt Count Neut % (Auto) Lymph % (Auto) [place] % (Auto) Eos % (Auto) Baso % (Auto) Neut # (Auto) Lymph # (Auto) [place] # (Auto) Eos # (Auto) Baso # (Auto) PT 15.4 H INR 1.4 H D-Dimer 654 H ABG pH ABG pCO2 ABG pO2 ABG HCO3 ABG Total CO2 ABG O2 Saturation ABG Base Excess FiO2 Sodium Potassium Chloride Carbon Dioxide BUN Creatinine Estimated GFR BUN/Creatinine Ratio Glucose Lactate 1.5 Calcium Total Bilirubin AST ALT Alkaline Phosphatase Total Creatine Kinase 317 H CK-MB (CK-2) 1.00 CK-MB (CK-2) Rel Index 0.3 L Troponin I 0.091 H Total Protein Albumin Globulin Albumin/Globulin Ratio Lipase Procalcitonin Urine Color Urine Appearance Urine pH Ur Specific [place] Urine Protein Urine Glucose (UA) Urine Ketones Urine Occult Blood Urine Nitrate Urine Bilirubin Ur Bilirubin Confirm Urine Urobilinogen Ur Leukocyte Esterase Urine RBC Urine WBC Ur Squamous Epith Cells Other Crystals Urine Bacteria Hyaline Casts Granular Casts Ur Culture Indicated? Nasal Screen MRSA (PCR) SARS-CoV-2 (PCR) 04/04/21 04/04/21 04/04/21 14:46 16:00 18:32 WBC RBC Hgb Hct MCV MCH MCHC RDW Plt Count Neut % (Auto) Lymph % (Auto) [place] % (Auto) Eos % (Auto) Baso % (Auto) Neut # (Auto) Lymph # (Auto) [place] # (Auto) Eos # (Auto) Baso # (Auto) PT INR D-Dimer ABG pH 7.42 ABG pCO2 39.2 ABG pO2 93 ABG HCO3 25 ABG Total CO2 26 ABG O2 Saturation 97 ABG Base Excess 1.0 FiO2 80 Sodium Potassium Chloride Carbon Dioxide BUN Creatinine Estimated GFR BUN/Creatinine Ratio Glucose Lactate Calcium Total Bilirubin AST ALT Alkaline Phosphatase Total Creatine Kinase CK-MB (CK-2) CK-MB (CK-2) Rel Index Troponin I Total Protein Albumin Globulin Albumin/Globulin Ratio Lipase Procalcitonin Urine Color Yellow Urine Appearance Clear Urine pH 5.0 Ur Specific [place] 1.025 Urine Protein 2+ H Urine Glucose (UA) Negative Urine Ketones Trace H Urine Occult Blood Negative Urine Nitrate Negative Urine Bilirubin 2+ H Ur Bilirubin Confirm Negative Urine Urobilinogen 1.0 Ur Leukocyte Esterase Negative Urine RBC 0-1/hpf Urine WBC 5-10/hpf H Ur Squamous Epith Cells 0-1 /hpf Other Crystals 2+ amorphous Urine Bacteria Few (2-10) H Hyaline Casts 1-5/lpf Granular Casts 30-100/lpf Ur Culture Indicated? Specimen cultured Nasal Screen MRSA (PCR) Negative for mrsa SARS-CoV-2 (PCR) 04/04/21 04/05/21 04/05/21 19:05 02:35 02:35 WBC 3.9 L RBC 4.79 Hgb 11.6 L Hct 36.0 L MCV 75.2 L MCH 24.3 L MCHC 32.3 RDW 17.4 H Plt Count 139 L Neut % (Auto) 84.6 H Lymph % (Auto) 11.9 L [place] % (Auto) 2.9 L Eos % (Auto) 0.1 L Baso % (Auto) 0.5 Neut # (Auto) 3300 Lymph # (Auto) 500 L [place] # (Auto) 100 Eos # (Auto) 0 Baso # (Auto) 0 PT INR D-Dimer ABG pH ABG pCO2 ABG pO2 ABG HCO3 ABG Total CO2 ABG O2 Saturation ABG Base Excess FiO2 Sodium Potassium Chloride Carbon Dioxide BUN Creatinine Estimated GFR BUN/Creatinine Ratio Glucose Lactate Calcium Total Bilirubin AST ALT Alkaline Phosphatase Total Creatine Kinase CK-MB (CK-2) CK-MB (CK-2) Rel Index Troponin I 0.104 H 0.064 H Total Protein Albumin Globulin Albumin/Globulin Ratio Lipase Procalcitonin Urine Color Urine Appearance Urine pH Ur Specific [place] Urine Protein Urine Glucose (UA) Urine Ketones Urine Occult Blood Urine Nitrate Urine Bilirubin Ur Bilirubin Confirm Urine Urobilinogen Ur Leukocyte Esterase Urine RBC Urine WBC Ur Squamous Epith Cells Other Crystals Urine Bacteria Hyaline Casts Granular Casts Ur Culture Indicated? Nasal Screen MRSA (PCR) SARS-CoV-2 (PCR) 04/05/21 02:35 WBC RBC Hgb Hct MCV MCH MCHC RDW Plt Count Neut % (Auto) Lymph % (Auto) [place] % (Auto) Eos % (Auto) Baso % (Auto) Neut # (Auto) Lymph # (Auto) [place] # (Auto) Eos # (Auto) Baso # (Auto) PT INR D-Dimer ABG pH ABG pCO2 ABG pO2 ABG HCO3 ABG Total CO2 ABG O2 Saturation ABG Base Excess FiO2 Sodium 146 H Potassium 3.9 Chloride 115 H Carbon Dioxide 29 BUN 17 Creatinine 0.78 Estimated GFR > 60.0 BUN/Creatinine Ratio 21.8 Glucose 155 H Lactate Calcium 8.5 Total Bilirubin 0.5 AST 56 ALT 40 Alkaline Phosphatase 145 H Total Creatine Kinase 261 H CK-MB (CK-2) CK-MB (CK-2) Rel Index Troponin I Total Protein 6.3 Albumin 3.0 L Globulin 3.3 Albumin/Globulin Ratio 0.9 L Lipase Procalcitonin Urine Color Urine Appearance Urine pH Ur Specific [place] Urine Protein Urine Glucose (UA) Urine Ketones Urine Occult Blood Urine Nitrate Urine Bilirubin Ur Bilirubin Confirm Urine Urobilinogen Ur Leukocyte Esterase Urine RBC Urine WBC Ur Squamous Epith Cells Other Crystals Urine Bacteria Hyaline Casts Granular Casts Ur Culture Indicated? Nasal Screen MRSA (PCR) SARS-CoV-2 (PCR) Exam Vital Signs (past 8 hours): - 04/05/21 02:00 04/05/21 02:50 04/05/21 03:00 Pulse Rate 90 85 87 Respiratory Rate 21 18 24 Blood Pressure 105/71 105/71 108/72 Pulse Oximetry 90 L 91 90 L 04/05/21 04:00 04/05/21 05:00 04/05/21 05:10 Pulse Rate 85 100 H 108 H Respiratory Rate 17 18 Blood Pressure 107/70 125/78 125/78 Pulse Oximetry 91 93 95 04/05/21 06:00 04/05/21 06:23 04/05/21 09:00 Pulse Rate 86 82 85 Respiratory Rate 18 24 20 Blood Pressure 111/70 111/70 108/66 Pulse Oximetry 91 92 92 04/05/21 09:14 Pulse Rate 93 H Respiratory Rate 22 Blood Pressure 108/66 Pulse Oximetry 93 Fraction of Inspired Oxygen 0.65 Oxygen Delivery Method Heated High Flow Oxygen Flow Rate 50 Quality TeleICU VTE Deep Vein Thrombosis/Pulmonary Embolism Present on Admission: No Assessment & Plan Assessment & Plan narrative: 35 y.o. male w/ PMHx of developmental delay, muscular dystrophy and GERD who was brought to ED with 5 days of non-productive cough and fever.? He was COVID-19 (+).? Urine was also suggestive of a UTI with an elevated procalcitonin. (1) Acute hypoxemic respiratory failure due to COVID-19: ?Status:?Acute ?Plan: -Continue dexamethasone, HFNC and remdesivir, wean for sat goal 92 -Continue baricitinib - -Continue ceftriaxone & azithromyci -Fluid-conservative strategy --> changed IVF to LR and lowered rate (2) Abnormal urinalysis: ?Status:?Acute ?Plan: -On ceftriaxone ,f/u Cx (3) Acute metabolic encephalopathy - Precedex drip as needed CCT 30 min Time Spent With Patient Critical Care time: I spent a total of [] minutes of critical care time on this patient's care today; this time is exclusive of procedural time.
--- NOTE | 2021-04-05 10:20 | P.PN_ITS ---
Subjective Subjective Date Patient Seen: 04/05/21 Time Patient Seen: 10:21 Interval history: Patient seen and evaluated at bedside mom's at bedside. Discussed care with nurse. Reviewed inpatient admission notes ER notes and tele bradley linebacker crewmember notes. Medications were reviewed as well as initial laboratory testing. Patient has slightly low white blood cell count mildly anemic MCV is a little bit low platelet count is a little bit low INR is slightly prolonged D-dimer is elevated ABGs fairly unremarkable. Sodium is a little bit high at 146 AST ALT lipase normal procalcitonin mildly elevated urinalysis shows ketones. Patient doing well in bed. Somewhat sleepy. Intermittent groaning. Has high- flow nasal cannula. Weeks of for command but does not respond to directions. His mom lucy is primary historian. She reiterates he is a full code. Exam Vital Signs (past 8 hours): - 04/05/21 02:50 04/05/21 03:00 04/05/21 04:00 Pulse Rate 85 87 85 Respiratory Rate 18 24 17 Blood Pressure 105/71 108/72 107/70 Pulse Oximetry 91 90 L 91 04/05/21 05:00 04/05/21 05:10 04/05/21 06:00 Pulse Rate 100 H 108 H 86 Respiratory Rate 18 18 Blood Pressure 125/78 125/78 111/70 Pulse Oximetry 93 95 91 04/05/21 06:23 04/05/21 09:00 04/05/21 09:14 Pulse Rate 82 85 93 H Respiratory Rate 24 20 22 Blood Pressure 111/70 108/66 108/66 Pulse Oximetry 92 92 93 Fraction of Inspired Oxygen 0.65 Oxygen Delivery Method Heated High Flow Oxygen Flow Rate 50 Narrative Exam Narrative: Gen.: Patient is arousable intermittent groaning has high-flow nasal cannula in place does not respond to direct questioning. HEENT: Pupils equal round and reactive or motor goes is mostly dry. Neck is supple Cardio: S1-S2 regular rate and rhythm no murmurs appreciated. Respiratory: Lungs show increased work of breathing breath sounds are distant. Good aeration. Abdomen: Soft nontender no rebound or guarding no liver spleen enlargement no appreciable hernias Extremities: Full range of motion Neurologic: Grossly intact. Objective Labs Result Diagrams: 04/05/21 02:35 04/05/21 02:35 Labs: Laboratory Results - last 24 hr 02/01/1304/04/21 04/04/21 14:06 14:15 14:15 WBC 6.8 RBC 5.50 Hgb 13.4 L Hct 41.4 MCV 75.3 L MCH 24.4 L MCHC 32.4 RDW 17.6 H Plt Count 195 Neut % (Auto) 82.4 H Lymph % (Auto) 10.1 L [place] % (Auto) 4.6 Eos % (Auto) 2.2 Baso % (Auto) 0.7 Neut # (Auto) 5600 Lymph # (Auto) 700 L [place] # (Auto) 300 Eos # (Auto) 100 Baso # (Auto) 0 PT INR D-Dimer ABG pH ABG pCO2 ABG pO2 ABG HCO3 ABG Total CO2 ABG O2 Saturation ABG Base Excess FiO2 Sodium 146 H Potassium 3.9 Chloride 112 H Carbon Dioxide 25 BUN 24 H Creatinine 1.11 Estimated GFR > 60.0 BUN/Creatinine Ratio 21.6 Glucose 110 H Lactate Calcium 9.4 Total Bilirubin 0.7 AST 80 H ALT 46 Alkaline Phosphatase 205 H Total Creatine Kinase CK-MB (CK-2) CK-MB (CK-2) Rel Index Troponin I Total Protein 7.3 Albumin 3.7 Globulin 3.6 Albumin/Globulin Ratio 1.0 Lipase 116 Procalcitonin 1.18 H Urine Color Urine Appearance Urine pH Ur Specific [place] Urine Protein Urine Glucose (UA) Urine Ketones Urine Occult Blood Urine Nitrate Urine Bilirubin Ur Bilirubin Confirm Urine Urobilinogen Ur Leukocyte Esterase Urine RBC Urine WBC Ur Squamous Epith Cells Other Crystals Urine Bacteria Hyaline Casts Granular Casts Ur Culture Indicated? Nasal Screen MRSA (PCR) SARS-CoV-2 (PCR) Positive H 04/04/21 04/04/21 04/04/21 14:15 14:15 14:15 WBC RBC Hgb Hct MCV MCH MCHC RDW Plt Count Neut % (Auto) Lymph % (Auto) [place] % (Auto) Eos % (Auto) Baso % (Auto) Neut # (Auto) Lymph # (Auto) [place] # (Auto) Eos # (Auto) Baso # (Auto) PT 15.4 H INR 1.4 H D-Dimer 654 H ABG pH ABG pCO2 ABG pO2 ABG HCO3 ABG Total CO2 ABG O2 Saturation ABG Base Excess FiO2 Sodium Potassium Chloride Carbon Dioxide BUN Creatinine Estimated GFR BUN/Creatinine Ratio Glucose Lactate 1.5 Calcium Total Bilirubin AST ALT Alkaline Phosphatase Total Creatine Kinase 317 H CK-MB (CK-2) 1.00 CK-MB (CK-2) Rel Index 0.3 L Troponin I 0.091 H Total Protein Albumin Globulin Albumin/Globulin Ratio Lipase Procalcitonin Urine Color Urine Appearance Urine pH Ur Specific [place] Urine Protein Urine Glucose (UA) Urine Ketones Urine Occult Blood Urine Nitrate Urine Bilirubin Ur Bilirubin Confirm Urine Urobilinogen Ur Leukocyte Esterase Urine RBC Urine WBC Ur Squamous Epith Cells Other Crystals Urine Bacteria Hyaline Casts Granular Casts Ur Culture Indicated? Nasal Screen MRSA (PCR) SARS-CoV-2 (PCR) 04/04/21 04/04/21 04/04/21 14:46 16:00 18:32 WBC RBC Hgb Hct MCV MCH MCHC RDW Plt Count Neut % (Auto) Lymph % (Auto) [place] % (Auto) Eos % (Auto) Baso % (Auto) Neut # (Auto) Lymph # (Auto) [place] # (Auto) Eos # (Auto) Baso # (Auto) PT INR D-Dimer ABG pH 7.42 ABG pCO2 39.2 ABG pO2 93 ABG HCO3 25 ABG Total CO2 26 ABG O2 Saturation 97 ABG Base Excess 1.0 FiO2 80 Sodium Potassium Chloride Carbon Dioxide BUN Creatinine Estimated GFR BUN/Creatinine Ratio Glucose Lactate Calcium Total Bilirubin AST ALT Alkaline Phosphatase Total Creatine Kinase CK-MB (CK-2) CK-MB (CK-2) Rel Index Troponin I Total Protein Albumin Globulin Albumin/Globulin Ratio Lipase Procalcitonin Urine Color Yellow Urine Appearance Clear Urine pH 5.0 Ur Specific [place] 1.025 Urine Protein 2+ H Urine Glucose (UA) Negative Urine Ketones Trace H Urine Occult Blood Negative Urine Nitrate Negative Urine Bilirubin 2+ H Ur Bilirubin Confirm Negative Urine Urobilinogen 1.0 Ur Leukocyte Esterase Negative Urine RBC 0-1/hpf Urine WBC 5-10/hpf H Ur Squamous Epith Cells 0-1 /hpf Other Crystals 2+ amorphous Urine Bacteria Few (2-10) H Hyaline Casts 1-5/lpf Granular Casts 30-100/lpf Ur Culture Indicated? Specimen cultured Nasal Screen MRSA (PCR) Negative for mrsa SARS-CoV-2 (PCR) 04/04/21 04/05/21 04/05/21 19:05 02:35 02:35 WBC 3.9 L RBC 4.79 Hgb 11.6 L Hct 36.0 L MCV 75.2 L MCH 24.3 L MCHC 32.3 RDW 17.4 H Plt Count 139 L Neut % (Auto) 84.6 H Lymph % (Auto) 11.9 L [place] % (Auto) 2.9 L Eos % (Auto) 0.1 L Baso % (Auto) 0.5 Neut # (Auto) 3300 Lymph # (Auto) 500 L [place] # (Auto) 100 Eos # (Auto) 0 Baso # (Auto) 0 PT INR D-Dimer ABG pH ABG pCO2 ABG pO2 ABG HCO3 ABG Total CO2 ABG O2 Saturation ABG Base Excess FiO2 Sodium Potassium Chloride Carbon Dioxide BUN Creatinine Estimated GFR BUN/Creatinine Ratio Glucose Lactate Calcium Total Bilirubin AST ALT Alkaline Phosphatase Total Creatine Kinase CK-MB (CK-2) CK-MB (CK-2) Rel Index Troponin I 0.104 H 0.064 H Total Protein Albumin Globulin Albumin/Globulin Ratio Lipase Procalcitonin Urine Color Urine Appearance Urine pH Ur Specific [place] Urine Protein Urine Glucose (UA) Urine Ketones Urine Occult Blood Urine Nitrate Urine Bilirubin Ur Bilirubin Confirm Urine Urobilinogen Ur Leukocyte Esterase Urine RBC Urine WBC Ur Squamous Epith Cells Other Crystals Urine Bacteria Hyaline Casts Granular Casts Ur Culture Indicated? Nasal Screen MRSA (PCR) SARS-CoV-2 (PCR) 04/05/21 02:35 WBC RBC Hgb Hct MCV MCH MCHC RDW Plt Count Neut % (Auto) Lymph % (Auto) [place] % (Auto) Eos % (Auto) Baso % (Auto) Neut # (Auto) Lymph # (Auto) [place] # (Auto) Eos # (Auto) Baso # (Auto) PT INR D-Dimer ABG pH ABG pCO2 ABG pO2 ABG HCO3 ABG Total CO2 ABG O2 Saturation ABG Base Excess FiO2 Sodium 146 H Potassium 3.9 Chloride 115 H Carbon Dioxide 29 BUN 17 Creatinine 0.78 Estimated GFR > 60.0 BUN/Creatinine Ratio 21.8 Glucose 155 H Lactate Calcium 8.5 Total Bilirubin 0.5 AST 56 ALT 40 Alkaline Phosphatase 145 H Total Creatine Kinase 261 H CK-MB (CK-2) CK-MB (CK-2) Rel Index Troponin I Total Protein 6.3 Albumin 3.0 L Globulin 3.3 Albumin/Globulin Ratio 0.9 L Lipase Procalcitonin Urine Color Urine Appearance Urine pH Ur Specific [place] Urine Protein Urine Glucose (UA) Urine Ketones Urine Occult Blood Urine Nitrate Urine Bilirubin Ur Bilirubin Confirm Urine Urobilinogen Ur Leukocyte Esterase Urine RBC Urine WBC Ur Squamous Epith Cells Other Crystals Urine Bacteria Hyaline Casts Granular Casts Ur Culture Indicated? Nasal Screen MRSA (PCR) SARS-CoV-2 (PCR) [facility] Medical History Mild developmental delay Muscular dystrophy Social History household members: family and other Assessment & Plan Assessment and plan (1) Acute hypoxemic respiratory failure due to COVID-19: Status: Acute (2) COVID-19: Status: Acute Plan Acute hypoxic respiratory failure Acute respiratory distress syndrome COVID pneumonia. Patient on heated high-flow 60 L 60% FiO2. O2 sats are good ABG was reviewed. Continue dexamethasone heated high-flow nasal cannula remdesivir and baricitinib. Prophylactic antibiotics ceftriaxone and azithromycin per tele bradley linebacker crewmember. Code status was reviewed with mother continue with full code and oxygen as needed. Reviewed labs continue with Lovenox monitor liver function INR is mildly prolonged. Work with speech therapy for swallow evaluation. Continue with limited amount of IV fluids. Metabolic encephalopathy due to being hospitalized acute illness. Requiring masood azepam. Trial of Precedex. Urinary tract infection. Patient's urinalysis shows white blood cells negative nitrate negative leukocyte esterase will follow culture. If negative consider stopping antibiotics. Muscular dystrophy with developmental delay patient high risk for intubation secondary to weakness developmental delay dysphagia monitor closely for decompensation. GERD chronic continue with daily omeprazole. Code status full code. Continue IV fluids. Continue DVT prophylaxis Lovenox. Anticipate prolonged hospital stay. Time Spent With Patient Critical Care time: I spent a total of [] minutes of critical care time on this patient's care today; this time is exclusive of procedural time. Quality VTE Deep Vein Thrombosis/Pulmonary Embolism Present on Admission: No
[2021-04-05] MEDS: BARICITINIB 2 MG TABLET 4 MG PO (10:53)
[2021-04-05] MEDS: ACETAMINOPHEN 325 MG TABLET 650 MG PO (10:54)
[2021-04-05] MEDS: dexmedeTOMIDine in 0.9 % NaCL 400 MCG/100 ML PLAST..BAG IV (10:55)
--- NOTE | 2021-04-05 11:53 | ST.IPCSEOM ---
Visit Care Team Role Provider Type Greer Black MD Other Providers Physician Specialty: Medical Address: Phone: Fax: Email: Mireille Nicole MD Other Providers Physician Specialty: Medical Address: Phone: Fax: Email: Concha Hart MD Other Providers Physician Specialty: Medical Address: Phone: Fax: Email: Parish Bobo MD Other Providers Physician Specialty: Medical Address: Phone: Fax: Email: Brandon Dunn MD Other Providers Physician Specialty: Internal Medicine Address: Phone: Fax: Email: Migel Garcia MD Other Providers Physician Specialty: Medical Address: Phone: Fax: Email: Franky Pal MD Other Providers Physician Specialty: Internal Medicine Address: Phone: Fax: Email: Fortino Reeves MD Other Providers Physician Specialty: Medical Address: Phone: Fax: Email: Gucci Hart MD Other Providers Physician Specialty: Medical Address: Phone: Fax: Email: Ezio Cameron MD Other Providers Physician Specialty: Medical Address: Phone: Fax: Email: Hilda Marin Other Providers Physician Specialty: Medical Address: Phone: Fax: Email: Terell Paredes MD Other Providers Physician Specialty: Medical Address: Phone: Fax: Email: Meryl Arango DO Emergency Provider Physician Referring Provider Specialty: Emergency Medicine Address: [address] [place] [address] Email: [email or web address] Karissa Bolivar MD Admit Provider Physician Attending Provider Primary Care Provider Specialty: Family Practice Address: [address] [place] [address] Email: [email or web address] Diagnoses Acute respiratory failure with hypoxia (04/04/21) Unspecified abnormal findings in urine (04/04/21) COVID-19 (04/04/21) Past Medical History (Last Reviewed 04/04/21 @ 21:21 by Franky Pal MD) Mild developmental delay (Medical) Muscular dystrophy (Medical) Speech-Language Pathology Swallow Evaluation ENGINEERING ASSOCIATE Clinical Swallow Evaluation Start: 04/05/21 11:19 Freq: Status: Active Protocol: Document 04/05/21 11:19 MG (Rec: 04/05/21 11:53 MG [id number]) Clinical Swallow Evaluation Session Time Visit Start Time 10:20 Visit Stop Time 10:50 Total Visit Minutes 30 Visit Information Visit Number 1 Setting Assessment Location Acute Care Visit Type Note Type Initial evaluation Next Note Type Next Note Type Treatment Note Patient Information Identification Type Name,Wristband History 35-year-old male with history of history of muscular dystrophy and developmental delay is admitted from the ED secondary to severe COVID. He was seen in the clinic today with mild diarrhea, severe nausea, vomiting, nonproductive cough, and fevers x 5 days. He has received a full 2 course set of COVID vaccines but is not yet boosted. Vital signs upon presentation included temperature of 98.3?, pulse 113, respirations 32, blood pressure 127/73 and O2 saturation 79% on room air. Patient was immediately started on high-flow oxygen and administered dexamethasone and remdesivir. Patient doing well in bed today. Somewhat sleepy. Intermittent groaning . Has high-flow nasal cannula . Responds to some directions. Subjective Observations Pt was resting in bed with mother at bedside. Pt was able to be aroused by ENGINEERING ASSOCIATE and participate in swallow evaluation. Of note, pt presented with a cough x3 prior to any oral trials of solids/liquids. Pt has mouth open a majority of the time and was consistently itching nose and moving nasal cannula. Swallow evaluation is needed at this time due to the pt coughing on thin liquids through a straw during the evening per nurse report. Pt is currently NPO until evaluation can be done. Per mom and reports from staff, pt had a regular diet prior to hospital admittance. Pt lives with family. Reported by Patient Other Symptoms Coughing Current Diet Nothing by mouth Baseline Feeding Method Dependent for feeding Patient Questionnaire No Objective Assessment Mental Status Responsive,Confused,Lethargic, Impulsive Oral Integrity Xerostomia/Dry mouth Dentition Missing teeth,Decay Lip Function Moderate impairment Observation of Lips at Rest Symmetrical Pucker Reduced range of motion, Reduced strength Lip Retraction Reduced range of motion Alternating Pucker/Lip Retraction Reduced range of motion Tongue Function Moderate impairment Tongue Protrusion Reduced range of motion, Reduced strength Tongue Retraction Reduced range of motion, Reduced strength Tongue Lateralization Reduced range of motion, Reduced strength Jaw Function Mild impairment Observations of Jaw at Rest Within normal limits Jaw Opening Reduced strength Jaw Closing Reduced strength Jaw Lateralization Reduced strength Jaw Protrusion Reduced strength Jaw Retraction Reduced strength Hard/Soft Palate Function Within normal limits Observations of Hard/Soft Palate Within normal limits Nasality Within normal limits Phonation Hoarse,Reduced loudness Respiratory Sufficiency Moderate impairment Comment Due to pt's difficulties with following most verbal commands , OME is based on observations during solid/liquid trials. Overall pt exhibits moderate weakness amongst all oral muscles (lips, tongue, jaw). Food and Liquid Trials Position During Assessment Slightly reclined Liquids Trialed Ice chips,Thin Solids Trialed Puree,Dysphagia Mechanical Administration Type Tea spoon,Cup single sip, Dependent feeding Oral Impairment Moderately impaired Oral Phase Comments As noted earlier, pt kept mouth open the duration of the evaluation. Lip closure around spoon was moderately impaired and lip closure around edge of cup was minimally impaired. No anterior spillage noted on any trials of solids/liquids. Pt has very poor dentition and slow, weak mastication of solid texture. Some tongue rocking observed on trial on dysphagia mechanical accompanied with the poor mastication. When prompted with the verbal command, chew chew chew the pt did masticate more efficiently. Pharyngeal Impairment Moderately impaired Pharyngeal Phase Comments Laryngeal palpation indicated some weakness of the anterior hyiod excursion but adequate hyolaryngeal movement. On trials of thin liquid with ice chip, teaspoon, and small clinician assisted sip, no overt s/sx of aspiration was noted. No coughing/wet voice observed. When pt attempted to drink from the cup independently, he took a larger sip which resulted in immediate throat clearing. Clinician assisted small sips x2 after that and no overt s/ sx observed. On two trials of puree texture (applesauce), the pt did swallow 1/2 teaspoon with no overt s/sx of aspiration. Pt does not like the applesauce and refused to attempt more trials. On one trial of dysphagia mechanical (small diced peach), pt's mastication time was extended and immediate throat clear was observed after completion of swallow. Of note, ENGINEERING ASSOCIATE observed the pt take pills orally from nurse with pudding and with water. Pudding resulted in some coughing but with a liquid wash, no overt s/sx of aspiration noted and the pill was successfully taken. Fatigue/Endurance Moderate fatigue Comment Pt began closing eyes towards the end of evaluation. When ENGINEERING ASSOCIATE asked the pt if he was sleepy, he did reply, yes. All trials were stopped at that time due to pt's level of fatigue and safety. Response/Comments Pt has difficulty following commands for strategies Rina Swallow Protocol No Findings Swallowing Function Oropharyngeal phase dysphagia Severity of Swallow Impairment Moderately impaired Contributing Factors to Swallow Reduced alertness or attention Impairment ,Difficulty following directions,Reduced oral strength/coordination/ sensation,Mastication inefficiency,Impaired airway protection Prognosis Fair Based on Cognitive status,Comorbidities ,Other (comment) Comment Pt's current levels of fatigue /weakness Impact on Safety and Functioning Risk for aspiration,Risk for inadequate nutrition/hydration Recommendations Instrumental Assessment No Swallowing Treatment Yes Frequency as needed to assess diet tolerance Recommended Solids Puree Recommended Liquids Thin Safety Precautions/Swallowing Supervision needed for all Recommendations meals,Feed only when alert, Reduce distractions,Remain upright (90 degrees) during all oral intake,Upright position at least 30 minutes after meals,Small bites and sips when eating,Slow rate; swallow between bites,No straw ,Multiple swallows,1 to 1 feeding assistance,Strict oral care after intake Medication Recommendations As Tolerated Discharge Recommendations shelter facility,middle or intermediate school principal care facility Education Patient/Caregiver Education Described results of evaluation,Family/caregivers expressed understanding of evaluation,Family/caregivers expressed agreement with goals & treatment plans,Family/ caregivers expressed understanding of safety precautions,Family/caregivers expressed understanding of feeding recommendations,Family /caregivers require further education/training Goals Short-term Goals Pt will participate in further assessment as he gains more strength in order to determine if current diet is appropriate for the pt. Family will participate in further educatin re: swallowing mechanism, impacts of weakness on the system Long-term Goals Pt will tolerate least restrictive diet without demonstrating overt s/sx of aspiration.
--- NOTE | 2021-04-05 12:44 | CM.DANOTE ---
DCP: Case received, EMR reviewed. Checked on patient through window, mother is at bedside. Did not enter room due to patient having COVID. Nurse, Rahat, was able to get information regarding patient when she was in the room, and passed on to this transportation planner. DCP assessment completed with information currently available. Patient is a 35 year old male who admitted yesterday afternoon to the care of the hospitalist team. PCP: Dr. Bolivar. Payer: confirmed: [employer]. Patient came to the hospital via family vehicle, and was sent over from his primary care provider at [facility]. At the clinic, he was having increased loose stools, nausea and vomiting, as well as a nonproductive cough and fevers for the last few days. He did have his vaccines, but not yet boosted. His oxygen saturation was 79% on room air and was placed on high flow oxygen. Patient was admitted with acute hypoxic respiratory failure secondary to COVID pneumonia, as well as acute dehydration. Patient also has history of muscular dystrophy myotonic. He is a full code, and all interventions are maintained. According to notes, if patient does decompensate and unable to be supported at this hospital, may recommend a higher level of care. Did not enter room secondary to patient having COVID. According to notes, patient and mother are poor historians. He resides in [place] with his parents, Timmy and Tia. At his baseline, he uses a FWW. He does not drive. It is unclear if mother is also NIMISHA caregiver. He has been sleeping, but was up using bedside commode according to nursing. P: DCP to continue to follow close for any needs or resources. He may benefit with home health, but currently not yet stable to work with the therapy team. Cheryl Tobin RN/Affirmative Action Officer Discharge Planning/Care Management CM Discharge Assessment Start: 04/05/21 12:42 Freq: Status: Active Protocol: Document 04/05/21 12:42 (Rec: 04/05/21 12:44 [id number]) Discharge Planning Assessment Assigned Cement Sack Breaker Cheryl Tobin RN/Affirmative Action Officer Advance Directives? No History Provided By Patient,Family Member,Medical Record Prior Living Arrangements House Household Members family,other Type of transporation used prior to Relies on Others admit Independent with ADL's No Is patient alert and oriented? Yes Needs Assistance With Bathing,Meal Prep,Managing Medications,Home Chores / Shopping Caregiver for Another No DME Already Rented / Owned FWW / Walker Comment Patient may benefit with home health, will follow closely Barriers to Discharge No Comment Has supportive parents at home . Discharge Plan Home Transportation Arrangement Family Referrals Initiated Other Additional Comment Will follow closely and see how he does here in the hospital. Whiteboard Updated in Patient Room with No name and ext. # of Cement Sack Breaker Comment Patient is COVID positive, did not enter room Review Status In Process Next Review Type Continued Stay Review
--- NOTE | 2021-04-05 18:32 | PC.NURSE ---
Addendum entered by Anita Sparks R.N. 04/05/21 18:40: Reviewed student Troy Bolaños's charting and agree with contents. Original Note: Day Shift Note Pt on heated HFNC 50L and FiO2 65%. SpO2 91-95%. Minimal respiratory effort, does not consistently follow commands, not taking deep breaths. Attempting to reposition side to side but pt moves self promptly back to supine. Restraints removed at 0600, mother at bedside and instructed to assist pt in replacing oxygen (pt intermittently removes). Precedex started this am at 0.2 mcg/kg/hr, pt responded well, resting and leaving oxygen in place. Precedex off at 1655 to allow pt to fully wake up and participate in dinner. Ate several bites of mashed potatoes, requiring sips of water to fully swallow. Used urinal with assist. Up to BSC x1 today, 1 person assist FWW. Parents both in room, pt calmed by presence. Pt able to make needs known this evening, speaking short sentences/words.
[2021-04-05] MEDS: ONDANSETRON 4 MG/2 ML INJ IV (18:34)
--- NOTE | 2021-04-05 20:14 | PC.NURSE ---
Spoke with Tele building construction inspector Dr. Pal regarding pt. kept pulling his HHFNC off, order received to increase Precedex to 0.7 mcg and give 2 mg IV haldol x1.
[2021-04-05] MEDS: HALOPERIDOL 5 MG/ML VIAL 2 MG IV (20:28)
[2021-04-05] MEDS: AZITHROMYCIN 500 MG in DEXTROSE 5% IN WATER 250 ML IV (20:48)
[2021-04-05] MEDS: cefTRIAXone 1,000 MG in SODIUM CHLORIDE 0.9% 100 ML 200 ML IV (20:48)
[2021-04-05] MEDS: LACTATED RINGERS 1,000 ML 42 ML IV (20:49)
--- NOTE | 2021-04-05 21:32 | PM.ICURNDS ---
- Date Patient Seen: 04/05/21 Time Patient Seen: 20:15 :: This patient was seen via real time interactive two-way audiovisual telecommunication. Note: COVID-19 induced acute hypoxic respiratory failure. Patient's O2 needs slightly increased from admission; currently on 50L 65%. Has been agitated at times and Precedex has been started. During rounds, patient saturatinting in mid 80s due to pulling at HFNC. Haldol 2 mg IVP ordered and given; instructed RN to increase Precedex to 0.7 mcg/kg/hr. On repeat camera evaluation, patient calm, saturating 93%. Chart review reveal (+) fluid balance-->stopped LR infusion and started Lasix.
[2021-04-05] MEDS: dexmedeTOMIDine in 0.9 % NaCL 400 MCG/100 ML PLAST..BAG 16.153 MCG IV (21:48)
[2021-04-05] MEDS: FUROSEMIDE 20 MG/2 ML VIAL IV (21:48)
[2021-04-06] VITALS (21 sets, daily range): BP systolic 91–120; BP diastolic 59–70; PULSE 54–98; RESP 15–22; TEMP 36–37.3; O2SAT 93–96
[2021-04-06] MEDS: dexmedeTOMIDine in 0.9 % NaCL 400 MCG/100 ML PLAST..BAG 16.153 MCG IV (04:12)
[2021-04-06] MEDS: PANTOPRAZOLE DR 20 MG TABLET PO (05:42)
[2021-04-06 05:45] LABS: Add Manual Diff / Slide Review NO; Basophils Absolute Auto 0 /uL (0-100); Basophils Percent Auto 0.1 % (0-2); Eosinophils Absolute Auto 0 /uL (0-450); Eosinophils Percent Auto 0.1 % (2-4); Hematocrit 35.6 % (41-53); Hemoglobin 11.3 g/dL (13.5-17.5); Lymphocytes Absolute Auto 600 /uL (1100-4500); Lymphocytes Percent Auto 16.9 % (25-40); Mean Corpuscular HGB Conc 31.9 % (30-36); Mean Corpuscular Hemoglobin 24.1 PG (26-34); Mean Corpuscular Volume 75.6 fL (80-100); Monocytes Absolute Auto 200 /uL (0-900); Monocytes Percent Auto 5.8 % (3-14); Neutrophils Absolute Auto 2700 /uL (1500-7000); Neutrophils Percent Auto 77.1 % (50-75); Platelet Count 167 X10^3/uL (150-400); Red Cell Distribution Width 17.6 % (11.6-14.8); White Blood Cell Count 3.5 X10^3/uL (4.5-11.0)
[2021-04-06 05:46] LABS: PTT Partial Thromboplastin Tim 30 SECONDS (26.4-36.2)
[2021-04-06 06:03] LABS: Alanine Aminotransferase 35 IU/L (<50); Alkaline Phosphatase 139 U/L (38-126); Aspartate Aminotransferase 34 IU/L (17-59); Bilirubin Total 0.3 mg/dL (0.2-1.3); Blood Urea Nitrogen 21 mg/dL (9-20); Calcium 8.7 mg/dL (8.4-10.2); Carbon Dioxide 32 mmol/L (22-32); Chloride 113 mmol/L (98-107); Estimated Glomerular Filt Rate > 60.0 mL/min (>60); Glucose 159 mg/dL (70-100); HEMOLYSIS < 15 (0-50); Potassium 4.1 mmol/L (3.4-5.1); Sodium 147 mmol/L (137-145)
[2021-04-06] MEDS: BARICITINIB 2 MG TABLET 4 MG PO (08:44)
[2021-04-06] MEDS: ENOXAPARIN 40 MG/0.4 ML SYRINGE SUBCUT (08:44)
[2021-04-06] MEDS: DEXAMETHASONE 10 MG/ML VIAL 6 MG IV (08:44)
[2021-04-06] MEDS: FUROSEMIDE 20 MG/2 ML VIAL IV ×2 (08:44→19:45)
[2021-04-06] MEDS: REMDESIVIR 100 MG in SODIUM CHLORIDE 0.9% 230 ML 250 ML IV (08:45)
--- NOTE | 2021-04-06 08:51 | PM.PN.1 ---
Subjective Subjective Date Patient Seen: 04/06/21 Time Patient Seen: 08:51 Interval history: Patient with some confusion overnight. Placed on Precedex given a dose of Haldol. Well otherwise. Oxygen status stable throughout the evening. FiO2 pretty stable as well. IV fluids stopped last night per tele mva reactor operator head and given IV Lasix. This morning blood pressure is a little bit lower than admission. Pulse is also a little bit lower. Reviewed labs. Show a pancytopenia. Swallow evaluation yesterday happened. On pureed food had some good dinner last night hydrating orally as well. Up ambulated to the bathroom. Good urinary output although incontinent bowel movement 1 day ago. Exam Vital Signs (past 8 hours): - 04/06/21 01:00 04/06/21 02:47 04/06/21 04:00 Temperature 97.0 F L Pulse Rate 56 L 55 L 55 L Respiratory Rate 16 22 21 Blood Pressure 105/69 108/70 107/67 Pulse Oximetry 96 95 95 04/06/21 04:41 04/06/21 06:15 04/06/21 07:45 Temperature Pulse Rate 55 L 55 L 54 L Respiratory Rate 22 18 20 Blood Pressure 107/67 97/61 91/59 L Pulse Oximetry 96 94 95 Fraction of Inspired Oxygen 0.65 Oxygen Delivery Method Heated High Flow Oxygen Flow Rate 50 Narrative Exam Narrative: Gen.: Sedated HEENT: Pupils equal round and reactive or mucosa is dry Cardio: [S1-S2 regular rate and rhythm no murmurs appreciated.] Respiratory: Lungs are clear good respiratory effort mild increased work of breathing Abdomen: [Soft nontender no rebound or guarding no liver spleen enlargement no appreciable hernias] Extremities: Warm dry perfused. Objective Labs Result Diagrams: 04/06/21 04:40 04/06/21 04:40 Labs: Laboratory Results - last 24 hr 04/06/21 04/06/21 04/06/21 04:40 04:40 04:40 WBC 3.5 L RBC 4.70 Hgb 11.3 L Hct 35.6 L MCV 75.6 L MCH 24.1 L MCHC 31.9 RDW 17.6 H Plt Count 167 Neut % (Auto) 77.1 H Lymph % (Auto) 16.9 L [place] % (Auto) 5.8 Eos % (Auto) 0.1 L Baso % (Auto) 0.1 Neut # (Auto) 2700 Lymph # (Auto) 600 L [place] # (Auto) 200 Eos # (Auto) 0 Baso # (Auto) 0 APTT 30 Sodium 147 H Potassium 4.1 Chloride 113 H Carbon Dioxide 32 BUN 21 H Creatinine 0.75 Estimated GFR > 60.0 BUN/Creatinine Ratio 28.0 H Glucose 159 H Calcium 8.7 Total Bilirubin 0.3 AST 34 ALT 35 Alkaline Phosphatase 139 H Total Protein 6.0 L Albumin 3.0 L Globulin 3.0 Albumin/Globulin Ratio 1.0 [facility] Medical History Mild developmental delay Muscular dystrophy Social History household members: family and other Assessment & Plan Assessment and plan (1) Acute hypoxemic respiratory failure due to COVID-19: Status: Acute (2) COVID-19: Status: Acute Plan Acute hypoxic respiratory failure Acute respiratory distress syndrome COVID pneumonia. Patient's oxygen status is stabilized. Try to wean down high-flow nasal cannula today. Continue with remdesivir barctinib and dexamethasone. Heated high-flow via nasal cannula respiratory rate is stable. O2 sats are good. Work with respiratory therapy to decrease. Given a dose of Lasix last evening and 1 this morning as per tele mva reactor operator head. Blood pressure is a little bit low his pulse is also a little bit low. Electrolytes are stable. Patient on prophylactic antibiotics. Metabolic encephalopathy due to being hospitalized acute illness.? Patient had episode of confusion last night requiring Precedex some restraints. Better this morning. Mom's at bedside. Pancytopenia. White blood cell counts low hemoglobin hematocrit slow platelet count slow. Question viral infection versus medication. Stable at this point continue to monitor closely blood counts . Urinary tract infection.? Patient's urinalysis is growing Gram-positive cocci. Sensitivities still yet to follow. Continue with ceftriaxone Muscular dystrophy with developmental delay patient high risk for intubation secondary to weakness developmental delay dysphagia monitor closely for decompensation. Mom at bedside with him today. Respiratory status is stable. GERD chronic continue with daily omeprazole.? Code status full code.? IV fluids on hold Lasix. Speech therapy evaluated patient doing solid trial. Courage and some ambulation sitting in chair today. Wean down O2. Continue hospitalization for a number of days. Time Spent With Patient Critical Care time: I spent a total of [] minutes of critical care time on this patient's care today; this time is exclusive of procedural time. Quality VTE Deep Vein Thrombosis/Pulmonary Embolism Present on Admission: No
--- NOTE | 2021-04-06 09:35 | P.TELICUPN_ITS ---
Subjective Subjective :: This patient was seen via real time interactive two-way audiovisual telecommunication. Pt comfortable on HFNC 50L & 60% Received Haldol overnight for agitation Mental status is better this am, only small dose of precedex Current Medications Current Medications Medications: Home Medications omeprazole 20 mg capsule,delayed release 20 mg PO QAM 04/04/21 [History Confirmed 04/04/21] Visit Medications (administered) Generic Name Dose Route Start Last Admin Trade Name Freq PRN Reason Stop Dose Admin Acetaminophen 650 mg 04/04/21 18:08 04/05/21 10:54 Acetaminophen 325 Mg Tablet PO 650 mg Q6HR PRN Administration Fever Dexamethasone 6 mg 04/05/21 09:00 04/06/21 08:44 Dexamethasone 10 Mg/Ml Vial IV 6 mg DAILY QUINTIN Administration Enoxaparin Sodium 40 mg 04/05/21 09:00 04/06/21 08:44 Enoxaparin 40 Mg/0.4 Ml Syringe SUBCUT 40 mg DAILY QUINTIN Administration Furosemide 20 mg 04/06/21 09:00 04/06/21 08:44 Furosemide 20 Mg/2 Ml Vial IV 20 mg BID QUINTIN Administration Remdesivir 100 mg/ Sodium 250 mls @ 250 mls/hr 04/05/21 09:00 04/06/21 08:45 Chloride IV 04/08/21 09:59 250 mls/hr DAILY QUINTIN Administration Ceftriaxone Sodium 1,000 mg/ 100 mls @ 200 mls/hr 04/04/21 21:15 04/05/21 21:45 Sodium Chloride IV Infused Q24H QUINTIN Infusion Azithromycin 500 mg/ Dextrose 250 mls @ 250 mls/hr 04/04/21 21:15 04/05/21 22:11 IV 04/08/21 21:16 Infused Q24H QUINTIN Infusion dexmedeTOMIDine in 0.9 % NaCL 400 mcg in 100 mls @ 4.615 mls/hr 04/05/21 09:45 04/06/21 06:05 Precedex IV 0.3 mcg/kg/hr TITRATE QUINTIN 6.923 mls/hr Titration Protocol 0.2 MCG/KG/HR Morphine Sulfate 2 mg 04/04/21 18:08 04/05/21 19:54 Morphine 2 Mg/Ml Inj IV 2 mg Q4HR PRN Administration Pain, Mild (1-3) Ondansetron HCl 4 mg 04/04/21 18:23 04/05/21 18:34 Ondansetron 4 Mg/2 Ml Inj IV 4 mg Q6HR PRN Administration Nausea And Vomiting Pantoprazole Sodium 20 mg 04/05/21 06:00 04/06/21 05:[address] 20 Mg Tablet PO 20 mg 0600 QUINTIN Administration Objective Ventilator Parameters: Ventilator Settings FiO2 0.65 Labs Result Diagrams: 04/06/21 04:40 04/06/21 04:40 Labs: Laboratory Results - last 24 hr 04/06/21 04/06/21 04/06/21 04:40 04:40 04:40 WBC 3.5 L RBC 4.70 Hgb 11.3 L Hct 35.6 L MCV 75.6 L MCH 24.1 L MCHC 31.9 RDW 17.6 H Plt Count 167 Neut % (Auto) 77.1 H Lymph % (Auto) 16.9 L [place] % (Auto) 5.8 Eos % (Auto) 0.1 L Baso % (Auto) 0.1 Neut # (Auto) 2700 Lymph # (Auto) 600 L [place] # (Auto) 200 Eos # (Auto) 0 Baso # (Auto) 0 APTT 30 Sodium 147 H Potassium 4.1 Chloride 113 H Carbon Dioxide 32 BUN 21 H Creatinine 0.75 Estimated GFR > 60.0 BUN/Creatinine Ratio 28.0 H Glucose 159 H Calcium 8.7 Total Bilirubin 0.3 AST 34 ALT 35 Alkaline Phosphatase 139 H Total Protein 6.0 L Albumin 3.0 L Globulin 3.0 Albumin/Globulin Ratio 1.0 Exam Vital Signs (past 8 hours): - 04/06/21 02:47 04/06/21 04:00 04/06/21 04:41 Temperature 97.0 F L Pulse Rate 55 L 55 L 55 L Respiratory Rate 22 21 22 Blood Pressure 108/70 107/67 107/67 Pulse Oximetry 95 95 96 04/06/21 06:15 04/06/21 07:45 04/06/21 08:00 Temperature Pulse Rate 55 L 54 L 64 Respiratory Rate 18 20 Blood Pressure 97/61 91/59 L 102/60 Pulse Oximetry 94 95 93 04/06/21 08:57 Temperature Pulse Rate 61 Respiratory Rate 20 Blood Pressure 101/67 Pulse Oximetry 93 Fraction of Inspired Oxygen 0.65 Oxygen Delivery Method Heated High Flow Oxygen Flow Rate 50 Quality TeleICU VTE Deep Vein Thrombosis/Pulmonary Embolism Present on Admission: No Assessment & Plan Assessment & Plan narrative: [address] [address] Teleintensivist Progress Note Patient: Oseas Tapia MR#: [id number] : 1985 Acct:[id number] Age/Sex: 35 / M ? Date of Service: 04/04/21 Provider:?Greer Black MD Subjective Subjective :: This patient was seen via real time interactive two-way audiovisual telecommunication. On HFNC 50L & 65% Current Medications Current Medications Medications: Home Medications omeprazole 20 mg capsule,delayed release 20 mg PO QAM 04/04/21 [History Confirmed 04/04/21] Visit Medications (administered) Generic Name Dose Route Start Last Admin ? Trade Name Freq? PRN Reason Stop Dose Admin Dexamethasone ?6 mg ?04/05/21 09:00 ?04/05/21 09:03 ? Dexamethasone 10 Mg/Ml Vial ?IV ? ?6 mg ? ?DAILY QUINTIN ? ?Administration Enoxaparin Sodium ?40 mg ?04/05/21 09:00 ?04/05/21 09:04 ? Enoxaparin 40 Mg/0.4 Ml Syringe ?SUBCUT ? ?40 mg ? ?DAILY QUINTIN ? ?Administration Remdesivir 100 mg/ Sodium ?250 mls @ 250 mls/hr ?04/05/21 09:00 ?04/05/21 09:02 ? Chloride ?IV ?04/08/21 09:59 ?250 mls/hr ? ?DAILY QUINTIN ? ?Administration Lactated Ringer's ?1,000 mls @ 42 mls/hr ?04/04/21 21:00 ?04/04/21 21:38 ? Lactated Ringers ?IV ? ?42 mls/hr ? ?CONT [facility] ? ?Administration Ceftriaxone Sodium 1,000 mg/ ?100 mls @ 200 mls/hr ?04/04/21 21:15 ?04/04/21 22:30 ? Sodium Chloride ?IV ? ?Infused ? ?Q24H QUINTIN ? ?Infusion Azithromycin 500 mg/ Dextrose ?250 mls @ 250 mls/hr ?04/04/21 21:15 ?04/04/21 23:35 ?D ?IV ?04/08/21 21:16 ?Infused ? ?Q24H QUINTIN ? ?Infusion Morphine Sulfate ?2 mg ?04/04/21 18:08 ?04/05/21 03:55 ? Morphine 2 Mg/Ml Inj ?IV ? ?2 mg ? ?Q4HR PRN ? ?Administration ? ?Pain, Mild (1-3) ? ? Pantoprazole Sodium ?20 mg ?04/05/21 06:00 ?04/05/21 05:43 ? Pantoprazole Dr 20 Mg Tablet ?PO ? ?20 mg ? ?0600 QUINTIN ? ?Administration Objective Labs Result Diagrams: 04/05/21 02:35? 04/05/21 02:35? Labs: Laboratory Results - last 24 hr ? 04/04/21 04/04/21 04/04/21 ? 14:06 14:15 14:15 WBC ? ?6.8 ? RBC ? ?5.50 ? HgbB ? ?13.4 L ? Hct ? ?41.4 ? MCV ? ?75.3 L ? MCH ? ?24.4 L ? MCHC ? ?32.4 ? RDW ? ?17.6 H ? Plt Count ? ?195 ? D Neut % (Auto) ? ?82.4 H ? Lymph % (Auto) ? ?10.1 L ? [place] % (Auto) ? ?4.6 ? Eos % (Auto) ? ?2.2 ? Baso % (Auto) ? ?0.7 ? Neut # (Auto) ? ?5600 ? Lymph # (Auto) ? ?700 L ? [place] # (Auto) ? ?300 ? Eos # (Auto) ? ?100 ? Baso # (Auto) ? ?0 ? PT ? ? ? INR ? ? ? D-Dimer ? ? ? ABG pH ? ? ? ABG pCO2 ? ? ? ABG pO2 ? ? ? ABG HCO3 ? ? ? ABG Total CO2 ? ? ? ABG O2 Saturation ? ? ? ABG Base Excess ? ? ? FiO2 ? ? ? Sodium ? ? ?146 H Potassium ? ? ?3.9 Chloride ? ? ?112 H Carbon Dioxide ? ? ?25 BUN ? ? ?24 H Creatinine ? ? ?1.11 Estimated GFR ? ? ?> 60.0 BUN/Creatinine Ratio ? ? ?21.6 Glucose ? ? ?110 H Lactate ? ? ? Calcium ? ? ?9.4 Total Bilirubin ?B ? ?0.7 AST ? ? ?80 H ALT ? ? ?46 Alkaline Phosphatase ? ? ?205 H Total Creatine Kinase ? ? ? CK-MB (CK-2) ? ? ? CK-MB (CK-2) Rel Index ? ? ? Troponin I ? ? ? Total Protein ? ? ?7.3 Albumin ? ? ?3.7 Globulin ? ? ?3.6 Albumin/Globulin Ratio ? ? ?1.0 Lipase ? ? ?116 Procalcitonin ? ? ?1.18 H Urine Color ? ? ? Urine Appearance ? ? ? Urine pH ? ? ? Ur Specific [place] ? ? ? Urine Protein ?B ? ? Urine Glucose (UA) ? ? ? Urine Ketones ? ? ? Urine Occult Blood ? ? ? Urine Nitrate ? ? ? Urine Bilirubin ? ? ? Ur Bilirubin Confirm ? ? ? Urine Urobilinogen ? ? ? Ur Leukocyte Esterase ? ? ? Urine RBC ? ? ? Urine WBC ? ? ? Ur Squamous Epith Cells ? ? ? Other Crystals ? ? ? Urine Bacteria ? ? ? Hyaline Casts ? ? ? Granular Casts ? ? ? Ur Culture Indicated? Nasal Screen MRSA (PCR) ? ? ? SARS-CoV-2 (PCR) ?Positive H ? ? ? 04/04/21 04/04/21 04/04/21 ? 14:15 14:15 14:15 WBC ? ? ? RBC ? ? ? Hgb ? ? ? Hct ? ? ? MCV ? ? ? MCH ? ? ? MCHC ? ? ? RDW ? ? ? Plt Count ? ? ? Neut % (Auto) ? ? ? Lymph % (Auto) ? ? ? [place] % (Auto) ? ? ? Eos % (Auto) ? ? ? Baso % (Auto) ? ? ? Neut # (Auto) ? ? ? Lymph # (Auto) ? ? ? [place] # (Auto) ? ? ? Eos # (Auto) ? ? ? Baso # (Auto) ? ? ? PT ? ?15.4 H ? INR ? ?1.4 H ? D-Dimer ? ?654 H ? ABG pH ? ? ? ABG pCO2 ? ? ? ABG pO2 ? ? ? ABG HCO3 ?B ? ? ABG Total CO2 ? ? ? ABG O2 Saturation ? ? ? ABG Base Excess ? ? ? FiO2 ? ? ? Sodium ? ? ? Potassium ? ? ? Chloride ? ? ? Carbon Dioxide ? ? ? BUN ? ? ? Creatinine ? ? ? Estimated GFR ? ? ? BUN/Creatinine Ratio ? ? ? Glucose ? ? ? Lactate ?1.5 ? ? Calcium ? ? ? Total Bilirubin ? ? ? AST ? ? ? ALT ? ? ? Alkaline Phosphatase ? ? ? Total Creatine Kinase ? ? ?317 H CK-MB (CK-2) ? ?B ?1.00 CK-MB (CK-2) Rel Index ? ? ?0.3 L Troponin I ? ? ?0.091 H Total Protein ? ? ? Albumin ? ? ? Globulin ? ? ? Albumin/Globulin Ratio ? ? ? Lipase ? ? ? Procalcitonin ? ? ? Urine Color ? ? ? Urine Appearance ? ? ? Urine pH ? ? ? Ur Specific [place] ? ? ? Urine Protein ? ? ? Urine Glucose (UA) ? ? ? Urine Ketones ? ? ? Urine Occult Blood ? ? ? Urine Nitrate ? ? ? Urine Bilirubin ? ? ? Ur Bilirubin Confirm ? ? ? Urine Urobilinogen ? ? ? Ur Leukocyte Esterase ? ? ? Urine RBC ? ? ? Urine WBC ? ? ? Ur Squamous Epith Cells ? ? ? Other Crystals ? ?B ? Urine Bacteria ? ? ? Hyaline Casts ? ? ? Granular Casts ? ? ? Ur Culture Indicated? Nasal Screen MRSA (PCR) ? ? ? SARS-CoV-2 (PCR) ? 04/04/21 04/04/21 04/04/21 ? 14:46 16:00 18:32 WBC ? ? ? RBC ? ? ? Hgb ? ? ? Hct ? ? ? MCV ? ? ? MCH ? ? ? MCHC ? ? ? RDW ? ? ? Plt Count ? ? ? Neut % (Auto) ? ? ? Lymph % (Auto) ? ? ? [place] % (Auto) ? ? ? Eos % (Auto) ? ? ? Baso % (Auto) ? ? ? Neut # (Auto) ? ? ? Lymph # (Auto) ? ? ? [place] # (Auto) ? ? ? Eos # (Auto) ? ? ? Baso # (Auto) ? ? ? PT ? ? ? INR ? ? ? D-Dimer ? ? ? ABG pH ?7.42 ? ? ABG pCO2 ?39.2 ? ? ABG pO2 ?93 ? ? ABG HCO3 ?25 ? ? ABG Total CO2 ?26 ? ? ABG O2 Saturation ?97 ? ? ABG Base Excess ?1.0 ? ? FiO2 ?80 ? ? Sodium ? ?C ? Potassium ? ? ? Chloride ? ? ? Carbon Dioxide ? ? ? BUN ? ? ? Creatinine ? ? ? Estimated GFR ? ? ? BUN/Creatinine Ratio ? ? ? Glucose ? ? ? Lactate ? ? ? Calcium ? ? ? Total Bilirubin ? ? ? AST ? ? ? ALT ? ? ? Alkaline Phosphatase ? ? ? Total Creatine Kinase ? ? ? CK-MB (CK-2) ? ? ? CK-MB (CK-2) Rel Index ? ? ? Troponin I ? ? ? Total Protein ? ? ? Albumin ? ? ? Globulin ? ? ? Albumin/Globulin Ratio ? ? ? Lipase ? ? ? Procalcitonin ? ? ? Urine Color ? ?Yellow ? Urine Appearance ? ?Clear ? Urine pH ? ?5.0 ? Ur Specific [place] ? ?1.025 ? Urine Protein ? ?2+ H ? Urine Glucose (UA) ? ?Negative ? Urine Ketones ? ?Trace H ? Urine Occult Blood ? ?Negative ? Urine Nitrate ? ?Negative ? Urine Bilirubin ? ?2+ H ? Ur Bilirubin Confirm ? ?Negative ? Urine Urobilinogen ? ?1.0 ? Ur Leukocyte Esterase ? ?Negative ? Urine RBC ? ?0-1/hpf ? Urine WBC ? ?5-10/hpf H ? Ur Squamous Epith Cells ? ?0-1 /hpf ? Other Crystals ? ?2+ amorphous ? Urine Bacteria ? ?Few (2-10) H ? Hyaline Casts ? ?1-5/lpf ? Granular Casts ? ?30-100/lpf ? Ur Culture Indicated? ? ?Specimen cultured ? Nasal Screen MRSA (PCR) ? ? ?Negative for mrsa SARS-CoV-2 (PCR) ? 04/04/21B 04/05/21 04/05/21 ? 19:05 02:35 02:35 WBC ? ? ?3.9 L RBC ? ? ?4.79 Hgb ? ? ?11.6 L Hct ? ? ?36.0 L MCV ? ? ?75.2 L MCH ? ? ?24.3 L MCHC ? ? ?32.3 RDW ? ? ?17.4 H Plt Count ? ? ?139 L Neut % (Auto) ? ? ?84.6 H Lymph % (Auto) ? ? ?11.9 L [place] % (Auto) ? ? ?2.9 L Eos % (Auto) ? ? ?0.1 L Baso % (Auto) ? ? ?0.5 Neut # (Auto) ? ? ?3300 Lymph # (Auto) ? ?B ?500 L [place] # (Auto) ? ? ?100 Eos # (Auto) ? ? ?0 Baso # (Auto) ? ? ?0 PT ? ? ? INR ? ? ? D-Dimer ? ? ? ABG pH ? ? ? ABG pCO2 ? ? ? ABG pO2 ? ? ? ABG HCO3 ? ? ? ABG Total CO2 ? ? ? ABG O2 Saturation ? ? ? ABG Base Excess ? ? ? FiO2 ? ? ? Sodium ? ? ? Potassium ? ? ? Chloride ? ? ? Carbon Dioxide ? ? ? BUN ? ? ? Creatinine ? ? ? Estimated GFR ? ? ? BUN/Creatinine Ratio ? ? ? Glucose ? ? ? Lactate ? ? ? Calcium ? ? ? Total Bilirubin ? ? ? AST ? ? ? ALT ? ? ? Alkaline Phosphatase ? ? ? Total Creatine Kinase ? ? ? CK-MB (CK-2) ? ? ? CK-MB (CK-2) Rel Index ? ? ? Troponin I ?0.104 H ?0.064 H ? Total Protein ? ? ? Albumin ? ? ? Globulin ? ? ? Albumin/Globulin Ratio ? ? ? Lipase ? ? ? Procalcitonin ? ? ? Urine Color ? ? ? Urine Appearance ? ? ? Urine pH ? ? ? Ur Specific [place] ? ? ? Urine Protein ? ? ? Urine Glucose (UA) ? ? ? Urine Ketones ? ? ? Urine Occult Blood ? ? ? Urine Nitrate ? ? ? Urine Bilirubin ? ? ? Ur Bilirubin Confirm ? ? ? Urine Urobilinogen ?B ? ? Ur Leukocyte Esterase ? ? ? Urine RBC ? ? ? Urine WBC ? ? ? Ur Squamous Epith Cells ? ? ? Other Crystals ? ? ? Urine Bacteria ? ? ? Hyaline Casts ? ? ? D Granular Casts ? ? ? Ur Culture Indicated? Nasal Screen MRSA (PCR) ? ? ? SARS-CoV-2 (PCR) ? 04/05/21 ? 02:35 WBC ? RBC ? Hgb ? Hct ? MCV ? MCH ? MCHC ? RDW ? Plt Count ? Neut % (Auto) ? Lymph % (Auto) ? [place] % (Auto) ? Eos % (Auto) ? Baso % (Auto) ? Neut # (Auto) ? Lymph # (Auto) ? [place] # (Auto) ? Eos # (Auto) ? Baso # (Auto) ? PT ? INR ? D-Dimer ? ABG pH ? ABG pCO2 ? ABG pO2 ? ABG HCO3 ? ABG Total CO2 ? ABG O2 Saturation ? ABG Base Excess ? FiO2 ? Sodium ?146 H Potassium ?3.9 Chloride ?115 H Carbon Dioxide ?29 BUN ?17 Creatinine ?0.78 Estimated GFR ?> 60.0 BUN/Creatinine Ratio ?21.8 Glucose ?155 H Lactate ? Calcium ?8.5 Total Bilirubin ?0.5 AST ?56 ALT ?40 Alkaline Phosphatase ?145 H Total Creatine Kinase ?261 H CK-MB (CK-2) ? CK-MB (CK-2) Rel Index ? Troponin I ? Total Protein ?6.3 Albumin ?3.0 L Globulin ?3.3 Albumin/Globulin Ratio ?0.9 L Lipase ? Procalcitonin ? Urine Color ? Urine Appearance ? Urine pH ? Ur Specific [place] ? Urine Protein ? Urine Glucose (UA) ? Urine Ketones ? Urine Occult Blood ? Urine Nitrate ? Urine Bilirubin ? Ur Bilirubin Confirm ? Urine Urobilinogen ? Ur Leukocyte Esterase ? Urine RBC ? Urine WBC ? Ur Squamous Epith Cells ? Other Crystals ? Urine Bacteria ? Hyaline Casts ? Granular Casts ? Ur Culture Indicated? ? Nasal Screen MRSA (PCR) ? SARS-CoV-2 (PCR) ? Exam Vital Signs (past 8 hours): - ? 04/05/21 02:00 04/05/21 02:50 04/05/21 03:00 Pulse Rate 90 85 87 Respiratory Rate 21 18 24 Blood Pressure 105/71 105/71 108/72 Pulse Oximetry 90 L 91 90 L ? 04/05/21 04:00 04/05/21 05:00 04/05/21 05:10 Pulse Rate 85 100 H 108 H Respiratory Rate 17 18 ? Blood Pressure 107/70 125/78 125/78 Pulse Oximetry 91 93 95 ? 04/05/21 06:00 04/05/21 06:23 04/05/21 09:00 Pulse Rate 86 82 85 Respiratory Rate 18 24 20 Blood Pressure 111/70 111/70 108/66 Pulse Oximetry 91 92 92 ? 04/05/21 09:14 Pulse Rate 93 H Respiratory Rate 22 Blood Pressure 108/66 Pulse Oximetry 93 Fraction of Inspired Oxygen ? 0.65? Oxygen Delivery Method? Heated High Flow? Oxygen Flow Rate? 50? Quality TeleICU VTE Deep Vein Thrombosis/Pulmonary Embolism Present on Admission: No Assessment & Plan Assessment & Plan narrative: 35 y.o. male w/ PMHx of developmental delay, muscular dystrophy and GERD who was brought to ED with 5 days of non-productive cough and fever.? He was COVID-19 (+).? Urine was also suggestive of a UTI with an elevated procalcitonin. (1) Acute hypoxemic respiratory failure due to COVID-19: ?Status:?Acute ?Plan: -Continue dexamethasone, HFNC and remdesivir, wean for sat goal 92 -Continue baricitinib - -Continue ceftriaxone & azithromyci - IV lasix (2) GPC UTI ?Status:?Acute ?Plan: -On ceftriaxone ,f/u final Cx (3) Acute metabolic encephalopathy ? ? - Precedex drip as needed (4) Mild hypernatremia - On IV lasix to keep negative , watch bicarb and sodium level as may need to switch lasix to prn CCT 30 min Time Spent With Patient Critical Care time: I spent a total of [] minutes of critical care time on this patient's care today; this time is exclusive of procedural time.
[2021-04-06] MEDS: ACETAMINOPHEN 325 MG TABLET 650 MG PO (09:36)
[2021-04-06] MEDS: MORPHINE 2 MG/ML INJ IV ×2 (12:10→19:45)
--- NOTE | 2021-04-06 16:06 | PC.NURSE ---
Addendum entered by Anita Sparks R.N. 04/06/21 18:14: Reviewed student nurse Troy Bolaños's charting and agree with its contents. Addendum entered by Anita Sparks R.N. 04/06/21 18:11: Heated HFNC decreased to 30L. Pt then noted to have taken oxygen off and SpO2 was 94-95% on RA. Remained off oxygen for the evening but placed on 2L NC as SpO2 decreased to 86-87% while pt was falling asleep. Original Note: Day Shift Note Pt drowsy and resting at start of shift but awakened to voice, restraints removed at start of shift (see restraint charting) and precedex decreased to 0.1 mcg/kg/hr to facilitate awakening and participation in the day's activities. Pt able to follow commands and take deep breaths when instructed to do so. Heated HFNC weaned down throughout shift from 50L and 65% FiO2 to 40L and 35% FiO2 at this time. SpO2 maintaining 92-95%. Up to BSC SBA, voiding via urinal or BSC. Declined to sit up in chair for lunch, discussed benefits and need to be out of bed for mealtimes, pt is resistant. Tylenol, morphine, and warm blankets provided for pt report of back pain. Parents at the bedside.
[2021-04-06] MEDS: LORazepam 2 MG/ML INJ IV (19:45)
[2021-04-06] MEDS: AZITHROMYCIN 500 MG in DEXTROSE 5% IN WATER 250 ML IV (19:45)
[2021-04-06] MEDS: cefTRIAXone 1,000 MG in SODIUM CHLORIDE 0.9% 100 ML 200 ML IV (19:50)
--- NOTE | 2021-04-06 22:56 | PM.ICURNDS ---
- Date Patient Seen: 04/06/21 Time Patient Seen: 20:20 :: This patient was seen via real time interactive two-way audiovisual telecommunication. Note: Following up on this COVID-19 patient. Patient is off Precedex and has been calm. Further, he has been weaned from HFNC to nasal cannula O2. Fluid balance is becoming less (+) on Lasix 20 mg IV BID although HCO3 did climb slightly today. direct support staff member reports that patient may be downgraded soon. Recommend to continue present plan; OK from my perspective that be patient be downgraded in AM if remainder of shift is uneventful. The Lasix may need to be stopped soon; defer to bedside staff.
[2021-04-07] VITALS (8 sets, daily range): BP systolic 99–111; BP diastolic 56–71; PULSE 72–94; RESP 16–21; TEMP 36.2–36.6; O2SAT 91–96
[2021-04-07] MEDS: MORPHINE 2 MG/ML INJ IV (00:06)
--- NOTE | 2021-04-07 01:55 | PC.NURSE ---
Addendum entered by Latoya Hale R.N. 04/07/21 05:59: 0600: Pt removing monitoring equipment, stating, I don't like it!!! while shrieking in a high-pitched voice. Paper Processing Machine Helper attempted to explain rationale for monitoring equipment, but pt unable to comprehend medical complexities. Paper Processing Machine Helper explained that patient would only need to wear monitoring equipment while in ICU and that he may be able to move to acute care side today. Patient seemed happy with this prospect and agreed to wear monitoring equipment for the time being. Original Note: 0145: Pt has continuously removed nasal cannula and refuses to wear with any regularity. Room air saturations remain in low 90s with occasional dips to 87% while deeply asleep. Pt and mother educated on importance of wearing oxygen, pt continues to refuse.
[2021-04-07] MEDS: LORazepam 2 MG/ML INJ IV (02:29)
[2021-04-07] MEDS: ACETAMINOPHEN 325 MG TABLET 650 MG PO (04:35)
[2021-04-07] MEDS: PANTOPRAZOLE DR 20 MG TABLET PO (06:19)
[2021-04-07 06:24] LABS: Add Manual Diff / Slide Review NO; Basophils Absolute Auto 0 /uL (0-100); Basophils Percent Auto 0.2 % (0-2); Eosinophils Absolute Auto 0 /uL (0-450); Hematocrit 36.6 % (41-53); Hemoglobin 11.8 g/dL (13.5-17.5); Lymphocytes Absolute Auto 700 /uL (1100-4500); Lymphocytes Percent Auto 17.4 % (25-40); Mean Corpuscular HGB Conc 32.2 % (30-36); Mean Corpuscular Hemoglobin 24.2 PG (26-34); Mean Corpuscular Volume 75.3 fL (80-100); Monocytes Absolute Auto 400 /uL (0-900); Monocytes Percent Auto 10.2 % (3-14); Neutrophils Absolute Auto 3000 /uL (1500-7000); Neutrophils Percent Auto 72.2 % (50-75); Platelet Count 212 X10^3/uL (150-400); Red Blood Cell Count 4.86 X10^6/uL (4.5-5.9); Red Cell Distribution Width 17.3 % (11.6-14.8); White Blood Cell Count 4.1 X10^3/uL (4.5-11.0)
[2021-04-07 06:26] LABS: INR 1.6 (0.9-1.3); Prothrombin Time 17.8 SECONDS (10.1-12.7)
[2021-04-07 06:31] LABS: Magnesium 2.1 mg/dL (1.6-2.3)
[2021-04-07 06:32] LABS: Alanine Aminotransferase 33 IU/L (<50); Albumin Globulin Ratio 0.9 (1.0-2.8); Alkaline Phosphatase 116 U/L (38-126); Aspartate Aminotransferase 37 IU/L (17-59); BUN Creatinine Ratio 29.5 (6-22); Bilirubin Total 0.5 mg/dL (0.2-1.3); Blood Urea Nitrogen 23 mg/dL (9-20); Calcium 8.7 mg/dL (8.4-10.2); Carbon Dioxide 35 mmol/L (22-32); Chloride 108 mmol/L (98-107); Estimated Glomerular Filt Rate > 60.0 mL/min (>60); Globulin 3.3 g/dL (1.7-4.1); Glucose 108 mg/dL (70-100); HEMOLYSIS < 15 (0-50); Potassium 3.4 mmol/L (3.4-5.1); Sodium 144 mmol/L (137-145); Total Protein 6.3 g/dL (6.3-8.2)
--- NOTE | 2021-04-07 08:11 | P.PN_ITS ---
Subjective Subjective Date Patient Seen: 04/07/21 Time Patient Seen: 08:11 Interval history: Patient overall doing well. Only complaint is back pain. Has been since being in this bed. Intermittently getting morphine. Has not had longstanding issues. Came off high-flow oxygen last night. Has been stable through most of the night. Intermittently not using is 2 L of O2. Has no other significant change or complaint. Exam Vital Signs (past 8 hours): - 04/07/21 04:00 Temperature 97.1 F L Pulse Rate 72 Respiratory Rate 19 Blood Pressure 105/68 Pulse Oximetry 91 Fraction of Inspired Oxygen 0.35 Oxygen Delivery Method Nasal Cannula Oxygen Flow Rate 2 Narrative Exam Narrative: alert middle-aged male in bed in no acute distress with O2 on. Lungs are clear. Heart regular rate and rhythm. Abdomen is soft positive bowel sounds nontender. Objective Labs Result Diagrams: 04/07/21 05:40 04/07/21 05:40 Labs: Laboratory Results - last 24 hr 04/07/21 04/07/21 04/07/21 05:40 05:40 05:40 WBC 4.1 L RBC 4.86 Hgb 11.8 L Hct 36.6 L MCV 75.3 L MCH 24.2 L MCHC 32.2 RDW 17.3 H Plt Count 212 Neut % (Auto) 72.2 Lymph % (Auto) 17.4 L [place] % (Auto) 10.2 Eos % (Auto) 0.0 L Baso % (Auto) 0.2 Neut # (Auto) 3000 Lymph # (Auto) 700 L [place] # (Auto) 400 Eos # (Auto) 0 Baso # (Auto) 0 PT 17.8 H INR 1.6 H Sodium 144 Potassium 3.4 Chloride 108 H Carbon Dioxide 35 H BUN 23 H Creatinine 0.78 Estimated GFR > 60.0 BUN/Creatinine Ratio 29.5 H Glucose 108 H Calcium 8.7 Magnesium Total Bilirubin 0.5 AST 37 ALT 33 Alkaline Phosphatase 116 Total Protein 6.3 Albumin 3.0 L Globulin 3.3 Albumin/Globulin Ratio 0.9 L 04/07/21 05:50 WBC RBC Hgb Hct MCV MCH MCHC RDW Plt Count Neut % (Auto) Lymph % (Auto) [place] % (Auto) Eos % (Auto) Baso % (Auto) Neut # (Auto) Lymph # (Auto) [place] # (Auto) Eos # (Auto) Baso # (Auto) PT INR Sodium Potassium Chloride Carbon Dioxide BUN Creatinine Estimated GFR BUN/Creatinine Ratio Glucose Calcium Magnesium 2.1 Total Bilirubin AST ALT Alkaline Phosphatase Total Protein Albumin Globulin Albumin/Globulin Ratio [facility] Medical History Mild developmental delay Muscular dystrophy Social History household members: family and other Assessment & Plan Assessment & Plan narrative: Acute hypoxemia respiratory failure due to COVID-19 pneumonia. Overall slowly improving. Down to 2 L. will continue usual medicines through tomorrow hopefully discharge home tomorrow. Patient at high risk for a recurrence. And readmission. Due to decreased immune system and muscular Dystrophy. UTI. Patient with cultured urine which was [id number]. Will switch to oral medication today. And treat for 5 days. Day 3 today. No other changes. Bacterial pneumonia. I think that is unlikely. Got both Rocephin and azithromycin. Will continue with oral Ceftin at risk for possible pneumonia but seems to be doing well. Acute metabolic encephalopathy seems to be doing well. No other change. Back pain. Probably musculoskeletal. Will switch from morphine the p.o. hydrocodone see how he does. Fluid overload. Patient was on Lasix will discontinue day and watch closely. Hyponatremia. Mild. Seems to be stable. Will recheck in a.m. to make sure st able off medication. Disposition. Patient rapidly improving. No other changes. Hopefully by to key want need oxygen at all. I think he is high risk for recurrence and would like to follow until off oxygen mom is reluctant to take oxygen home. Is still needing oxygen tomorrow will be need to be discharged with oxygen for home. Mom understands. Patient understands. Questions answered. Time Spent With Patient Critical Care time: I spent a total of [] minutes of critical care time on this patient's care today; this time is exclusive of procedural time. Quality VTE Deep Vein Thrombosis/Pulmonary Embolism Present on Admission: No
[2021-04-07] MEDS: cefUROXime 250 MG TABLET 500 MG PO ×2 (08:28→20:35)
[2021-04-07] MEDS: BARICITINIB 2 MG TABLET 4 MG PO (08:29)
[2021-04-07] MEDS: REMDESIVIR 100 MG in SODIUM CHLORIDE 0.9% 230 ML 250 ML IV (08:29)
[2021-04-07] MEDS: ENOXAPARIN 40 MG/0.4 ML SYRINGE SUBCUT (08:30)
[2021-04-07] MEDS: DEXAMETHASONE 10 MG/ML VIAL 6 MG IV (08:30)
[2021-04-07] MEDS: HYDROCODONE/ACET 5/325 TABLET 1 TAB PO ×2 (08:31→20:35)
--- NOTE | 2021-04-07 11:14 | ST.IPCSEOM ---
Visit Care Team Role Provider Type Greer Black MD Other Providers Physician Specialty: Medical Address: Phone: Fax: Email: Mireille Nicole MD Other Providers Physician Specialty: Medical Address: Phone: Fax: Email: Concha Hart MD Other Providers Physician Specialty: Medical Address: Phone: Fax: Email: Parish Bobo MD Other Providers Physician Specialty: Medical Address: Phone: Fax: Email: Brandon Dunn MD Other Providers Physician Specialty: Internal Medicine Address: Phone: Fax: Email: Migel Garcia MD Other Providers Physician Specialty: Medical Address: Phone: Fax: Email: Franky Pal MD Other Providers Physician Specialty: Internal Medicine Address: Phone: Fax: Email: Fortino Reeves MD Other Providers Physician Specialty: Medical Address: Phone: Fax: Email: Gucci Hart MD Other Providers Physician Specialty: Medical Address: Phone: Fax: Email: Ezio Cameron MD Other Providers Physician Specialty: Medical Address: Phone: Fax: Email: Hilda Marin Other Providers Physician Specialty: Medical Address: Phone: Fax: Email: Terell Paredes MD Other Providers Physician Specialty: Medical Address: Phone: Fax: Email: Meryl Arango DO Emergency Provider Physician Referring Provider Specialty: Emergency Medicine Address: [address] [place] [address] Email: [email or web address] Karissa Bolivar MD Admit Provider Physician Attending Provider Primary Care Provider Specialty: Family Practice Address: [address] [place] [address] Email: [email or web address] Diagnoses Acute respiratory failure with hypoxia (04/04/21) Unspecified abnormal findings in urine (04/04/21) COVID-19 (04/04/21) Past Medical History (Last Reviewed 04/04/21 @ 21:21 by Franky Pal MD) Mild developmental delay (Medical) Muscular dystrophy (Medical) Speech-Language Pathology Swallow Evaluation STOCK LETTERER Clinical Swallow Evaluation Start: 04/05/21 11:19 Freq: Status: Active Protocol: Document 04/07/21 10:47 LEAK (Rec: 04/07/21 11:12 LEAK [id number]) Clinical Swallow Evaluation Session Time Visit Start Time 09:45 Visit Stop Time 10:20 Total Visit Minutes [address] Ng Reason for Referral dysphagia Setting Assessment Location Acute Care Visit Type Note Type Re-evaluation Patient Information Identification Type Name,Date of History 35-year-old male with history of history of muscular dystrophy and developmental delay is admitted from the ED secondary to severe COVID. He was seen in the clinic today with mild diarrhea, severe nausea, vomiting, nonproductive cough, and fevers x 5 days. He has received a full 2 course set of COVID vaccines but is not yet boosted. Vital signs upon presentation included temperature of 98.3?, pulse 113, respirations 32, blood pressure 127/73 and O2 saturation 79% on room air. Patient was immediately started on high-flow oxygen and administered dexamethasone and remdesivir. Patient doing well in bed today. Somewhat sleepy. Intermittent groaning . Has high-flow nasal cannula . Responds to some directions. Subjective Observations Pt was in his bed, awake. His mother was in the room as well. Pt agreed to swallowing evaluation. Pt was repositioned for evaluation. Reported by Patient Current Diet Pureed,Thin liquids Objective Assessment Mental Status Alert,Responsive,Cooperative Oral Integrity Xerostomia/Dry mouth Dentition Missing teeth,Decay Lip Function Moderate impairment Pucker Reduced range of motion, Reduced strength Lip Retraction Reduced range of motion Alternating Pucker/Lip Retraction Reduced range of motion, Incoordination Tongue Function Mild impairment Tongue Protrusion Reduced range of motion, Reduced strength Tongue Retraction Reduced range of motion, Reduced strength Tongue Lateralization Reduced strength, Incoordination Jaw Opening Reduced range of motion Hard/Soft Palate Function Within normal limits Observations of Hard/Soft Palate Within normal limits Comment Pt presented with overjet dentition with a tongue thrust . Labial movement and strength were diminished. Pt cleared spoon presentation with his upper teeth. Decay and missing teeth were noted. Mastication was observed to be without rotary chew, but was more a open/closed pattern of chewing Food and Liquid Trials Position During Assessment Slightly reclined Liquids Trialed Thin Solids Trialed Dysphagia Mechanical,Dysphagia Advanced,Mechanical Soft, Regular Administration Type Tea spoon,Cup single sip, Controlled cup sip,Cup consecutive sips,Straw,Self- feeding Oral Impairment Mildly impaired Oral Phase Comments Pt was more alert today, following directions with out impulsive movements. OME is based on observations during solid/liquid trials. Overall pt exhibits moderate weakness accross all oral muscles (lips , tongue, jaw). Pharyngeal Impairment Within functional limits Pharyngeal Phase Comments Pt's hyolaryngeal elevation was WFL per palpation. No wet voicing observed. Coughing was noted, but did not appear to be swallow related. Pt reported that foods/liquids did not go down wrong way. Silent aspiration cannot be ruled out as instrumental assessment (MBS) would be needed. MBS is not indicated at this time. Fatigue/Endurance Mild fatigue Findings Swallowing Function Within functional limits Severity of Swallow Impairment Within functional limits Contributing Factors to Swallow Reduced oral strength/ Impairment coordination/sensation, Mastication inefficiency, Impaired oral-pharyngeal transport Prognosis Fair Based on Bed bound,Comorbidities Impact on Safety and Functioning Risk for aspiration Recommendations Instrumental Assessment No Swallowing Treatment Yes Frequency F/U x1 to monitor for safety of diet change Recommended Solids Regular Recommended Liquids Thin Safety Precautions/Swallowing Reduce distractions,Remain Recommendations upright (90 degrees) during all oral intake,Needs verbal cues to use recommended strategies,Upright position at least 30 minutes after meals, Slow rate; swallow between bites,Set-up assistance,Strict oral care after intake Medication Recommendations As Tolerated Discharge Recommendations snf care facility,Home with Home Health Education Patient/Caregiver Education Described results of evaluation,Patient expressed understanding of evaluation, Patient expressed agreement with goals & treatment plans, Family/caregivers expressed understanding of evaluation, Family/caregivers expressed agreement with goals & treatment plans,Patient expressed understanding of safety precautions,Patient expressed understanding of feeding recommendations,Family /caregivers expressed understanding of safety precautions,Family/caregivers expressed understanding of feeding recommendations Goals Long-term Goals Pt will safely tolerate the least restrictive diet to meet hydration and nutrition needs without aspiration.
[2021-04-08] VITALS: BP 98/55; PULSE 68; RESP 18; TEMP 36.6; O2SAT 92
[2021-04-08] MEDS: HYDROCODONE/ACET 5/325 TABLET 1 TAB PO (00:45)
[2021-04-08 04:00] VITALS: BP 102/63; PULSE 78; RESP 18; TEMP 36.3; O2SAT 93
--- NOTE | 2021-04-08 05:38 | PM.DS.1 ---
History of Present Illness History of Present Illness Date Patient Seen: 04/08/21 Time Patient Seen: 05:38 Chief complaint: covid Narrative: 35-year-old male is admitted from the ED secondary to severe COVID. He was seen in the clinic today with mild diarrhea, severe nausea, vomiting, nonproductive cough, and fevers x 5 days. He has received a full 2 course set of COVID vaccines but is not yet boosted. Vital signs upon presentation included temperature of 98.3?, pulse 113, respirations 32, blood pressure 127/73 and O2 saturation 79% on room air. Patient was immediately started on high-flow oxygen and administered dexamethasone and remdesivir. He also received a bolus of IV fluids and 2 mg of morphine and 4 mg of IV Zofran. Labs significant for an elevated D-dimer at 654 and PT/ INR. Other elevations included troponin I at 0.091, AST 205, alk-phos 80, procalcitonin 1.18, total CK 317. Chest x-ray showed bilateral mid to lower lung lobe infiltrates. Chest CT is pending. Discharge Providers Provider Date of admission: 04/04/21 16:46 Discharge Date: 04/08/21 Primary care physician: Karissa Bolivar MD Consults: 04/04/21 18:08 Consult to Tele-budget officer Routine Comment: Consulting Provider: [facility] [employer] Reason for consultation: Clinical Laboratory Medical Director services Has provider been notified: No 04/04/21 18:15 Consult to Respiratory Therapy Evaluate & Treat Comment: Physician Instructions: Evaluate and treat 04/04/21 18:16 Consult to Speech Therapy Evaluate & Treat Comment: Physician Instructions: Evaluate and treat Discharge provider: Karissa Bolivar MD Summary Hospital Course Discharge Diagnosis: 1. Acute hypoxic respiratory failure, resolved 2. Acute respiratory distress syndrome, resolved 3. COVID pneumonia, resolving 4. Acute metabolic encephalopathy, resolved 5. UTI, Gram-positive bacilli, acute, improving 6. Myocardial injury, likely seconday to COVID 19 pneumonia 7. Muscular dystonia, chronic 8. Developmental delay, chronic 9. GERD, chronic 10. Mild hypernatremia, due to fluid resuscitation from acute dehydration, resolving 11. Mild hypokalemia, due to fluid resuscitation from acute dehydration, acute 12. Pancytopenia, not present admission resolving and now resolving 13. Back pain, acute on chronic Hospital Course: Patient was admitted for respiratory support and received high-flow oxygen, dexamethasone, remdesivir, and baracitinib. Initially had a bump in his troponin that subsequently trended down, thought to be scondary to COVID pneumonia. EKG had not ST changes. Urine culture showed Gram-positive bacilli and he was started on ceftriaxone and azithromycin, now on day 4/5 antibiotics. Currently on cefuroxime 500 mg PO BID. He did have acute metabolic encephalopathy in the hospital and Precedex and Haldol was required for sedation with good effect. Initially was dehydrated from diarrhea due to COVID and during IVF rehydration, had a bit of fluid shift with a bump in his sodium and a pancytopenia that are now both resolving. He did receive Lasix for the hypernatremia. Also, on day of discharge, his potassium was slightly low and he was repleted prior to discharge. His acute on chronic back pain was treated with narcotics. On day of discharge, he is afebrile with stable vital signs throughout. He has now on room air and has been stable overnight. Will need follow-up in 1-2 weeks with repeat CBC and CMP and urine culture to test for cure. Time spent on Discharge and Coordination of post-hospital care: 35 minutes Status at Discharge Cognitive/behavioral status at discharge: at baseline, oriented Functional status at discharge: uses cane/walker Overall status at discharge: patient is progressing back to baseline Exam Vital Signs (past 8 hours): - 04/08/21 00:00 04/08/21 04:00 Temperature 97.8 F 97.3 F L Pulse Rate 68 78 Respiratory Rate 18 18 Blood Pressure 98/55 L 102/63 Pulse Oximetry 92 93 Fraction of Inspired Oxygen 0.35 Oxygen Delivery Method Room Air Oxygen Flow Rate 0 Narrative Exam Narrative: GENERAL:? Alert and oriented, appearing stated age, high-flow nasal cannula in place. HEENT:? Head normocephalic/atraumatic.? Extraocular movements intact. LUNGS:? Clear to auscultation bilaterally, no wheezes rhonchi, or rales. CV:? Normal S1 and S2 with tachycardic rate and regular rhythm, no audible murmurs, rubs or gallops. ABDOMEN:? Soft, non-tender, non-distended, no organomegaly.? Positive bowel sounds. EXTREMITIES:? No clubbing, cyanosis, or edema. NEURO:? Hypotonic, generalized, dysphonic. PSYCH:? Alert and oriented x 3. SKIN:? No concerning lesions. Objective Labs Result Diagrams: 04/08/21 06:44 04/08/21 06:44 Labs: Laboratory Results - last 24 hr 04/07/21 04/07/21 04/07/21 05:40 05:40 05:40 WBC 4.1 L RBC 4.86 Hgb 11.8 L Hct 36.6 L MCV 75.3 L MCH 24.2 L MCHC 32.2 RDW 17.3 H Plt Count 212 Neut % (Auto) 72.2 Lymph % (Auto) 17.4 L [place] % (Auto) 10.2 Eos % (Auto) 0.0 L Baso % (Auto) 0.2 Neut # (Auto) 3000 Lymph # (Auto) 700 L [place] # (Auto) 400 Eos # (Auto) 0 Baso # (Auto) 0 PT 17.8 H INR 1.6 H Sodium 144 Potassium 3.4 Chloride 108 H Carbon Dioxide 35 H BUN 23 H Creatinine 0.78 Estimated GFR > 60.0 BUN/Creatinine Ratio 29.5 H Glucose 108 H Calcium 8.7 Magnesium Total Bilirubin 0.5 AST 37 ALT 33 Alkaline Phosphatase 116 Total Protein 6.3 Albumin 3.0 L Globulin 3.3 Albumin/Globulin Ratio 0.9 L 04/07/21 05:50 WBC RBC Hgb Hct MCV MCH MCHC RDW Plt Count Neut % (Auto) Lymph % (Auto) [place] % (Auto) Eos % (Auto) Baso % (Auto) Neut # (Auto) Lymph # (Auto) [place] # (Auto) Eos # (Auto) Baso # (Auto) PT INR Sodium Potassium Chloride Carbon Dioxide BUN Creatinine Estimated GFR BUN/Creatinine Ratio Glucose Calcium Magnesium 2.1 Total Bilirubin AST ALT Alkaline Phosphatase Total Protein Albumin Globulin Albumin/Globulin Ratio [facility] Medical History Mild developmental delay Muscular dystrophy Social History household members: family and other Discharge Plan Discharge Plan Patient Disposition: Home Health Service Discharge orders & Medications Prescriptions: New cefuroxime axetil 250 mg Tablet 500 mg PO BID 1 Days Qty: 4 0RF Continued omeprazole 20 mg capsule,delayed release(DR/EC) 20 mg PO QAM 0RF Label Comments: Take 2 capsule by mouth twice a day Follow up/Referrals: Karissa Bolivar MD [Primary Care Provider] - Diet/Activity/Treatments Diet: Diet as Tolerated Activity: with 4WW Skin/Wound/Dressing Care Report to your healthcare provider any signs of infection, such as:: chills, fever and increased pain Visit Report/Discharge Packet Instructions: DI for COVID-19 (Suspected or Confirmed ), How to Care for Someone with COVID-19, COVID-19: Protecting Yourself When You're at High Risk Discharge Data Primary Care Provider: Karissa Bolivar Quality VTE Deep Vein Thrombosis/Pulmonary Embolism Present on Admission: No
[2021-04-08] MEDS: PANTOPRAZOLE DR 20 MG TABLET PO (05:52)
[2021-04-08 06:52] LABS: Add Manual Diff / Slide Review NO; Basophils Absolute Auto 0 /uL (0-100); Basophils Percent Auto 0.3 % (0-2); Eosinophils Absolute Auto 0 /uL (0-450); Eosinophils Percent Auto 0.5 % (2-4); Hematocrit 34.7 % (41-53); Hemoglobin 11.2 g/dL (13.5-17.5); Lymphocytes Absolute Auto 900 /uL (1100-4500); Lymphocytes Percent Auto 19.3 % (25-40); Mean Corpuscular HGB Conc 32.3 % (30-36); Mean Corpuscular Hemoglobin 24.4 PG (26-34); Mean Corpuscular Volume 75.4 fL (80-100); Monocytes Absolute Auto 300 /uL (0-900); Monocytes Percent Auto 6.1 % (3-14); Neutrophils Absolute Auto 3400 /uL (1500-7000); Neutrophils Percent Auto 73.8 % (50-75); Platelet Count 205 X10^3/uL (150-400); Red Cell Distribution Width 17.6 % (11.6-14.8); White Blood Cell Count 4.6 X10^3/uL (4.5-11.0)
[2021-04-08 07:09] LABS: Alanine Aminotransferase 30 IU/L (<50); Albumin 2.8 g/dL (3.5-5.0); Albumin Globulin Ratio 0.9 (1.0-2.8); Alkaline Phosphatase 102 U/L (38-126); Aspartate Aminotransferase 41 IU/L (17-59); BUN Creatinine Ratio 24.2 (6-22); Bilirubin Total 0.5 mg/dL (0.2-1.3); Blood Urea Nitrogen 16 mg/dL (9-20); Calcium 8.5 mg/dL (8.4-10.2); Carbon Dioxide 33 mmol/L (22-32); Chloride 109 mmol/L (98-107); Estimated Glomerular Filt Rate > 60.0 mL/min (>60); Glucose 90 mg/dL (70-100); HEMOLYSIS < 15 (0-50); Potassium 3.3 mmol/L (3.4-5.1); Sodium 144 mmol/L (137-145); Total Protein 5.8 g/dL (6.3-8.2)
[2021-04-08 08:00] VITALS: BP 98/59; PULSE 76; RESP 22; TEMP 36.3; O2SAT 92
[2021-04-08 08:40] LABS: Fractionated Inspired Oxygen 100
[2021-04-08] MEDS: cefUROXime 250 MG TABLET 500 MG PO (08:52)
[2021-04-08] MEDS: BARICITINIB 2 MG TABLET 4 MG PO (08:52)
[2021-04-08] MEDS: DEXAMETHASONE 10 MG/ML VIAL 6 MG IV (08:53)
[2021-04-08] MEDS: ENOXAPARIN 40 MG/0.4 ML SYRINGE SUBCUT (08:53)
[2021-04-08] MEDS: REMDESIVIR 100 MG in SODIUM CHLORIDE 0.9% 230 ML 250 ML IV (09:56)
--- NOTE | 2021-04-08 10:26 | CM.DPNOTE ---
Addendum entered by Jony Bloom 04/08/21 14:52: Aleksandra FERRO contacted [employer] [facility] and indicated they are not able to accept Rubi insurance at this time. [facility] [employer] [facility] contacted [facility] and they will accept referral, can accept Rubi Medicaid, will let [facility] if there are any concerns with referral once it has been clinically reviewed. Liyah at [facility] reported they are able to travel to [facility]. Referral faxed to [facility]. Patient's father informed it would be Ashley vs Aleksandra contacting him to open services. Jony Bloom [facility] Original Note: 35yo male admitted for acute hypoxic respiratory failure secondary to Covid Pneumonia as well as acute dehydration. Patient is medically stable and ready for discharge at this time. [facility] consulted to assist with referral for PT/OT/ST/RN. Patient's father discussed options with [facility] [employer] [facility] and he prefers HH agency on rotation calendar for today as he cannot remember what company they have used prior. F2F, ST evaluation, Discharge Summary, facesheet provided to Aleksandra FERRO via fax @[phone]. Aleksandra asked to contact Father Narayan Tapia at [phone] to arrange beginning services. Patient's father picking up patient and pt's mother who has remained in hospital setting during admission. Patient discharging to home via POV. Patient does not require pre auth by insurance for coverage. Jony Bloom [facility]
[2021-04-08 11:18] VITALS: BP 100/63; PULSE 85; RESP 22; TEMP 36.3; O2SAT 94
== END 2021-04-08 12:19 | disposition home health service (06) | DRG 177 ==
LOC: ED 14:32 → AC 16:46 → ICU 04-05 09:25
PROVIDERS: Family Medicine; Admitting Provider Student in an Organized Health Care Education/Training Program; Emergency Provider Emergency Medicine; PCP Student in an Organized Health Care Education/Training Program; Referring Provider Emergency Medicine; Visit Provider Student in an Organized Health Care Education/Training Program
DX: U07.1 COVID-19 (principal); J12.82 Pneumonia due to coronavirus disease 2019; G93.41 Metabolic encephalopathy; J80 Acute respiratory distress syndrome; D61.818 Other pancytopenia; I24.8 Other forms of acute ischemic heart disease; N39.0 Urinary tract infection, site not specified; G71.00 Muscular dystrophy, unspecified; E87.70 Fluid overload, unspecified; E86.0 Dehydration; K21.9 Gastro-esophageal reflux disease without esophagitis; R62.50 Unspecified lack of expected normal physiological development in childhood
CPT/HCPCS: 36415; 36600; 71045; 71275; 80053; 81001; 82550; 82553; 82805; 83605; 83690; 83735; 84145; 84484; 85025; 85379; 85610; 85730; 87040; 87077; 87086; 87635; 87797; 92610; 93005; 93010; 94762; 96361; 96365; 96366; 96375; 99233; 99284; 99285; C9803; J0696; J1100; J1630; J1650; J1940; J2060; J2270; J2405; Q9967

== ENCOUNTER → 2022-03-20 14:16 | Outpatient (CLI) | payer OTHER, MEDICAID, SELFPAY ==
[2021-04-04 18:19] VITALS: BMI 30.6
--- NOTE | 2022-03-20 | DI.RAD.S_ITS ---
PROCEDURE: XR KNEE RT 3V INDICATIONS: BILATERAL KNEE PAIN TECHNIQUE: 3 views of the knee were acquired. COMPARISON: None. FINDINGS: Mild narrowing of the lateral patellofemoral compartment with mild patellar tilt. Mild medial femorotibial compartment joint space narrowing. Small marginal osteophytes in all 3 compartments of the knee. Small knee joint effusion. No fracture or dislocation. IMPRESSION: Small knee joint effusion with mild osteoarthritic change in the patellofemoral and medial femorotibial compartments. Dictated by: Jose Glover M.D. on 03/20/2022 at 15:02 Approved by: Jose Glover M.D. on 03/20/2022 at 15:03
--- NOTE | 2022-03-20 | DI.RAD.S_ITS ---
PROCEDURE: XR KNEE LT 3V INDICATIONS: BILATERAL KNEE PAIN TECHNIQUE: 3 views of the knee were acquired. COMPARISON: None. FINDINGS: Bones: Joint spaces maintained. Features of arthritis or degenerative change. No fractures or dislocations. No suspicious bony lesions. Soft tissues: No joint effusion. No suspicious soft tissue calcifications. IMPRESSION: No acute finding or significant degenerative change. Dictated by: Jose Glover M.D. on 03/20/2022 at 15:00 Approved by: Jose Glover M.D. on 03/20/2022 at 15:02
== END ==
PROVIDERS: PCP Family Medicine; Referring Provider Internal Medicine; Visit Provider Internal Medicine
DX: M25.561 Pain in right knee (principal); M25.562 Pain in left knee; M25.461 Effusion, right knee
CPT/HCPCS: 73562

== ENCOUNTER → 2022-09-23 14:00 | Oncology outpatient (ONC) | payer OTHER, MEDICAID, SELFPAY ==
[2021-04-04 18:19] VITALS: BMI 30.6
[2021-05-28 14:24] VITALS: BP 147/87; PULSE 90; RESP 18; TEMP 37.2; O2SAT 99
--- NOTE | 2021-05-28 14:33 | P.CONONC_ITS ---
History of Present Illness - Data of Consult Primary Care Provider: Karissa Bolivar MD - Consult Narrative Reason for consult: Leukopenia Narrative: Oseas Tapia is a 35 year old male referred for evaluation of anemia and leukopenia. He was recently hospitalized for COVID pneumonia for 4 days and states he has fully recovered. Recdent labs do show mild anemia and leukopenia. He denies fevers, chills, adenopathy, headaches or weight loss. 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 He reports good appetite and normal diet. Currently his only medication are PPI. He has past history for multiple surgerues for musculos keletal issues. He has no prior history of carcinoma, chemotherapy or radiation exposures. CC: Nicholas Rubi MD Home Medications and Allergies Home Medications Medication Instructions Recorded Confirmed Type omeprazole 20 mg capsule,delayed 20 mg PO QAM 04/04/21 05/28/21 History release famotidine 10 mg/mL intravenous 10 mg BID 05/28/21 05/28/21 History solution Allergies Allergy/AdvReac Type Severity Reaction Status Date / Time Sulfa (Sulfonamide Allergy Unknown Verified 04/04/21 14:34 Antibiotics) [SULFA (SULFONAMIDE ANTIBIOTICS)] promethazine [PROMETHAZINE] AdvReac Unknown Verified 04/04/21 14:34 Medical History - Medical, Surgical, Family History Medical History: Medical History (Last Reviewed 04/04/21 @ 21:21 by Franky Pal MD) Mild developmental delay Muscular dystrophy Review of Systems - Patient Self-Reported Symptoms SR ears, nose, mouth, throat issues: Cough SR respiratory issues: Cough SR Skin issues: Hair loss or scalp prob SR Gastrointestinal issues: Abdominal pain SR Genitourinary issues: Blood in urine SR Musculoskeletal issues: Difficulty walking SR Neuro issues: Headache SR Endocrine issues: Excessive thirst Exam Vital signs: Vital Signs Temp Pulse Resp BP Pulse Ox 05/28/21 14:24 98.9 F 90 18 147/87 H 99 Intake and Output 05/27/21 05/28/21 05/28/21 23:59 07:59 15:59 Other: Weight 95.4 kg Patient Weight 05/28/21 23:59 Weight 95.4 kg - Constitutional positive no acute distress, negative diaphoretic - Routine HEENT Exam Head: Present: normocephalic Eye: Present: PERRL (Conjunctivae normal) ENT: Present: mucous membranes moist - Routine Respiratory Exam Present: Clear to auscultation bilaterally. Absent: rales, respiratory distress, wheezes - Routine Cardiovascular Exam Present: RRR. Absent: murmur, irregular rhythm - Routine Abdominal Exam Present: soft. Absent: tenderness, distended, guarding - Routine Extremities Exam Present: full ROM. Absent: edema, tenderness (No Swelling) - Routine Skin Exam Present: dry, warm. Absent: lesions (No Bruising), jaundice - Routine Neurological Exam Present: alert, oriented X3. Absent: sensory deficit, motor deficit - Routine Psychiatric Exam Present: normal affect, normal thought process, cooperative. Absent: anxious, agitated Results - Imaging Additional studies: Procedures Introduction of Baricitinib into Mouth and Pharynx, External Approach, [employer] 6 (04/04/21) Introduction of Remdesivir Anti-infective into Peripheral Vein, Percutaneous Approach, [employer] 5 (04/04/21) Assessment and Plan (1) Leukopenia Status: Acute 35 year old male referred for evaluation of leukopenia and anemia after recent covid infection requiring hospitalization. He has recovered from his covid infection but was noted to have abnormalities on his cbc. Althoug covid infections quite frequently cause leukopenia and transient anemia, I will go ahead a evaluate him for other possibilities such as nutritional/vitmain deficiencies or underlying marrow process. He is agreeable to having labs done today and will see me back in 2-3 weeks to review results.
[2021-05-28 15:25] LABS: Add Manual Diff / Slide Review NO; Basophils Absolute Auto 0 /uL (0-100); Basophils Percent Auto 0.8 % (0-2); Eosinophils Absolute Auto 100 /uL (0-450); Hematocrit 39.3 % (41-53); Hemoglobin 12.8 g/dL (13.5-17.5); Lymphocytes Absolute Auto 1100 /uL (1100-4500); Lymphocytes Percent Auto 28.1 % (25-40); Mean Corpuscular HGB Conc 32.6 % (30-36); Mean Corpuscular Hemoglobin 25.6 PG (26-34); Mean Corpuscular Volume 78.4 fL (80-100); Monocytes Absolute Auto 400 /uL (0-900); Monocytes Percent Auto 10.2 % (3-14); Neutrophils Absolute Auto 2200 /uL (1500-7000); Neutrophils Percent Auto 57.9 % (50-75); Platelet Count 235 X10^3/uL (150-400); Red Blood Cell Count 5.01 X10^6/uL (4.5-5.9); Red Cell Distribution Width 19.1 % (11.6-14.8); White Blood Cell Count 3.8 X10^3/uL (4.5-11.0)
[2021-05-28 15:42] LABS: Alanine Aminotransferase 61 IU/L (<50); Albumin 3.7 g/dL (3.5-5.0); Albumin Globulin Ratio 1.3 (1.0-2.8); Alkaline Phosphatase 107 U/L (38-126); Aspartate Aminotransferase 51 IU/L (17-59); BUN Creatinine Ratio 11.3 (6-22); Bilirubin Total 0.3 mg/dL (0.2-1.3); Blood Urea Nitrogen 7 mg/dL (9-20); Calcium 8.8 mg/dL (8.4-10.2); Carbon Dioxide 28 mmol/L (22-32); Chloride 112 mmol/L (98-107); Estimated Glomerular Filt Rate > 60.0 mL/min (>60); Globulin 2.9 g/dL (1.7-4.1); Glucose 98 mg/dL (70-100); HEMOLYSIS 42 (0-50); Iron 52 ug/dL (49-181); Lactate Dehydrogenase 544 U/L (313-618); Potassium 4.4 mmol/L (3.4-5.1); Sodium 144 mmol/L (137-145); Total Protein 6.6 g/dL (6.3-8.2)
[2021-05-28 15:51] LABS: Transferrin 430 mg/dL (206-381)
[2021-05-28 15:55] LABS: Percent Iron Saturation 10 % (20-50); Total Iron Binding Capacity 530 ug/dL (261-462)
[2021-05-28 16:17] LABS: Ferritin 5 ng/mL (18-464)
[2021-05-28 16:50] LABS: Folate 9.2 ng/mL (2.76-20.0); HEMOLYSIS < 15 (0-50); Vitamin B12 204 pg/mL (239-931)
[2021-05-30 13:10] LABS: Albumin 3.3 g/dL (2.9-4.4); Alpha-1-Globulin 0.3 g/dL (0.0-0.4); Alpha-2-Globulin 0.9 g/dL (0.4-1.0); Gamma Globulin 0.6 g/dL (0.4-1.8); Globulin Total 2.9 g/dL (2.2-3.9); Protein, Total 6.2 g/dL (6.0-8.5)
[2021-06-18 13:07] VITALS: BP 130/78; PULSE 60; RESP 18; TEMP 36.6; O2SAT 100
--- NOTE | 2021-06-18 13:25 | P.PNONC_ITS ---
PN -Subjective - Date of Visit Date of visit: 06/18/21 Chief Complaint: Follow-up anemia Interval history: Medardo is a very pleasant 35-year-old gentleman referred for evaluation of leukopenia and anemia. He did have a recent COVID infection/pneumonia prior to his visit on initial consultation. Currently he is feeling well and denies any fevers chills nausea vomiting headaches or blood in the stools. - Patient Self-Reported Symptoms SR Constitution: Fatigue/Malaise SR ears, nose, mouth, throat issues: Cough SR respiratory issues: Cough SR Cardiovascular issues: Chest pain, discomfort, tightness SR Skin issues: Dry skin SR Gastrointestinal issues: Abdominal pain SR Genitourinary issues: Frequent urination SR Musculoskeletal issues: Back or neck pain, Cold hands or feet SR Neuro issues: Headache SR Endocrine issues: Excessive thirst Home Medications and Allergies Home Medications Medication Instructions Recorded Confirmed Type omeprazole 20 mg capsule,delayed 20 mg PO QAM 04/04/21 06/18/21 History release famotidine 10 mg/mL intravenous 10 mg BID 05/28/21 06/18/21 History solution Allergies Allergy/AdvReac Type Severity Reaction Status Date / Time Sulfa (Sulfonamide Allergy Unknown Verified 04/04/21 14:34 Antibiotics) [SULFA (SULFONAMIDE ANTIBIOTICS)] promethazine [PROMETHAZINE] AdvReac Unknown Verified 04/04/21 14:34 Exam Vital signs: Vital Signs Temp Pulse Resp BP Pulse Ox 06/18/21 13:07 97.9 F 60 18 130/78 100 Intake and Output 06/17/21 06/18/21 06/18/21 23:59 07:59 15:59 Other: Weight 96.3 kg Patient Weight 06/18/21 23:59 Weight 96.3 kg Results - Labs Laboratory Last Values WBC 3.8 X10^3/uL (4.5-11.0) L 05/28/21 14:57 RBC 5.01 X10^6/uL (4.5-5.9) 05/28/21 14:57 Hgb 12.8 g/dL (13.5-17.5) L 05/28/21 14:57 Hct 39.3 % (41-53) L 05/28/21 14:57 MCV 78.4 fL (80-100) L 05/28/21 14:57 MCH 25.6 PG (26-34) L 05/28/21 14:57 MCHC 32.6 % (30-36) 05/28/21 14:57 RDW 19.1 % (11.6-14.8) H 05/28/21 14:57 Plt Count 235 X10^3/uL (150-400) 05/28/21 14:57 Neut % (Auto) 57.9 % (50-75) 05/28/21 14:57 Lymph % (Auto) 28.1 % (25-40) 05/28/21 14:57 [place] % (Auto) 10.2 % (3-14) 05/28/21 14:57 Eos % (Auto) 3.0 % (2-4) 05/28/21 14:57 Baso % (Auto) 0.8 % (0-2) 05/28/21 14:57 Neut # (Auto) 2200 /uL (4808-4959) 05/28/21 14:57 Lymph # (Auto) 1100 /uL (7009-9566) 05/28/21 14:57 [place] # (Auto) 400 /uL (0-900) 05/28/21 14:57 Eos # (Auto) 100 /uL (0-450) 05/28/21 14:57 Baso # (Auto) 0 /uL (0-100) 05/28/21 14:57 Sodium 144 mmol/L (137-145) 05/28/21 14:57 Potassium 4.4 mmol/L (3.4-5.1) 05/28/21 14:57 Chloride 112 mmol/L (98-107) H 05/28/21 14:57 Carbon Dioxide 28 mmol/L (22-32) 05/28/21 14:57 BUN 7 mg/dL (9-20) L 05/28/21 14:57 Creatinine 0.62 mg/dL (0.66-1.25) L 05/28/21 14:57 Estimated GFR > 60.0 mL/min (>60) 05/28/21 14:57 BUN/Creatinine Ratio 11.3 (6-22) 05/28/21 14:57 Glucose 98 mg/dL (70-100) 05/28/21 14:57 Calcium 8.8 mg/dL (8.4-10.2) 05/28/21 14:57 Iron 52 ug/dL (49-181) 05/28/21 14:57 TIBC 530 ug/dL (261-462) H 05/28/21 14:57 % Saturation 10 % (20-50) L 05/28/21 14:57 Transferrin 430 mg/dL (206-381) H 05/28/21 14:57 Ferritin 5 ng/mL (18-464) L 05/28/21 14:57 Total Bilirubin 0.3 mg/dL (0.2-1.3) 05/28/21 14:57 AST 51 IU/L (17-59) 05/28/21 14:57 ALT 61 IU/L (<50) H 05/28/21 14:57 Alkaline Phosphatase 107 U/L (38-126) 05/28/21 14:57 Lactate Dehydrogenase 544 U/L (313-618) 05/28/21 14:57 Total Protein 6.6 g/dL (6.3-8.2) 05/28/21 14:57 Total Protein (PEP) 6.2 g/dL (6.0-8.5) 05/28/21 14:57 Albumin 3.7 g/dL (3.5-5.0) 05/28/21 14:57 Albumin (PEP) 3.3 g/dL (2.9-4.4) 05/28/21 14:57 Globulin 2.9 g/dL (1.7-4.1) 05/28/21 14:57 Albumin/Globulin Ratio 1.3 (1.0-2.8) 05/28/21 14:57 Albumin/Globulin (PEP) 1.1 (0.7-1.7) 05/28/21 14:57 Fwhcv-6-Pocquvnwr 0.3 g/dL (0.0-0.4) 05/28/21 14:57 Tmzfi-8-Vvrbigugt 0.9 g/dL (0.4-1.0) 05/28/21 14:57 Beta Globulins 1.2 g/dL (0.7-1.3) 05/28/21 14:57 Gamma Globulins 0.6 g/dL (0.4-1.8) 05/28/21 14:57 Gamma Glob/Tot Protein 2.9 g/dL (2.2-3.9) 05/28/21 14:57 M-Sean Not observed g/dL (Not Observed) 05/28/21 14:57 Vitamin B12 204 pg/mL (239-931) L 05/28/21 14:57 Folate 9.2 ng/mL (2.76-20.0) 05/28/21 14:57 Ref Lab Notation Comment (.) 05/28/21 14:57 - Imaging Additional studies: Procedures Introduction of Baricitinib into Mouth and Pharynx, External Approach, [employer] 6 (04/04/21) Introduction of Remdesivir Anti-infective into Peripheral Vein, Percutaneous Approach, [employer] 5 (04/04/21) Assessment and Plan (1) Leukopenia Status: Acute 35 year old male referred for evaluation of leukopenia and anemia after recent covid infection requiring hospitalization. He has recovered from his covid infection but was noted to have abnormalities on his cbc. Lab results today indicate that he does have vitamin B12 deficiency as well as an iron deficiency. I will go ahead and arrange for iron B12 replacement therapy and plan to see him back in 2 months with repeat CBC. Consideration may be given to referral to GI for colonoscopy given that he does have iron deficiency and is male. Plan Iron sulfate 200 mg IV weekly x5 Vitamin B12 1000 mcg IM weekly x4 then monthly times 12 Return to clinic in 2 months with repeat CBC
--- NOTE | 2021-06-27 08:15 | ONC.SCHED ---
Addendum entered by Ashly Norris 06/27/21 12:06: I am going to first give this to triage, Wednesday, as Dr. Rubi isn't back in office until Wednesday and patient is scheduled to start iron on 07/02/21. Perhaps triage can assist with providing additional information as requested, obtain information from Dr. Rubi at [facility], or facilitate getting Dr. Rubi's assistance first thing Wednesday morning in hopes of keeping the Wednesday infusion as scheduled. Original Note: Received response from [facility] regarding iron infusions ordered. They are requiring Documented trial and failure, or intolerance to oral iron supplementation. I am making Dr. Rubi aware with this note and requesting he amend dictation to include documentation requested or advise scheduling regarding iron infusions.
--- NOTE | 2021-07-01 16:21 | PC.NURSE ---
Spoke to Dr. Rubi about documentation needs to be in pt's chart about intolerance to PO iron. Dr. Rubi dc'd iron infusions and will start pt on Iron Sulfate 325mg PO TID (OTC) [id number]. This RN spoke to pt's mom, Tia and informed her of this. She said she wrote down the directions. This RN educated her and pt via phone on possibility of constipation; pt could take prune juice, or stool softner as needed. Dr. Rubi wants to see pt in 6 weeks. This RN messaged Ashly in scheduling.
[2021-07-09 12:59] VITALS: BP 140/97; PULSE 89; RESP 16; TEMP 37.3; O2SAT 100
[2021-07-09] MEDS: CYANOCOBALAMIN 1,000 MCG/ML VIAL 1000 MCG SUBCUT (13:10)
[2021-07-09 13:15] VITALS: BP 129/80
--- NOTE | 2021-07-09 14:30 | PC.NURSE ---
B12 supplement Pt in clinic for B12 injection. Had been taking supplemental B12 by mouth. Per Dr. Rubi, Pt should discontinue PO B12 while receiving B12 injections. Pt and Pt's father notified and voiced understanding.
[2021-07-16 13:36] VITALS: BP 118/72; PULSE 74; RESP 16; TEMP 37.1; O2SAT 99
[2021-07-16] MEDS: CYANOCOBALAMIN 1,000 MCG/ML VIAL 1000 MCG SUBCUT (13:38)
[2021-07-24 14:46] VITALS: BP 128/83; PULSE 73; RESP 18; TEMP 36.8; O2SAT 99
[2021-07-24] MEDS: CYANOCOBALAMIN 1,000 MCG/ML VIAL 1000 MCG SUBCUT (14:52)
[2021-08-06] MEDS: CYANOCOBALAMIN 1,000 MCG/ML VIAL 1000 MCG SUBCUT (13:07)
[2021-08-06 13:14] VITALS: BP 130/73; PULSE 72; RESP 18; TEMP 36.6; O2SAT 98
[2021-08-13 11:25] LABS: Add Manual Diff / Slide Review NO; Basophils Absolute Auto 100 /uL (0-100); Basophils Percent Auto 1.4 % (0-2); Eosinophils Absolute Auto 100 /uL (0-450); Eosinophils Percent Auto 2.5 % (2-4); Hematocrit 43.5 % (41-53); Hemoglobin 13.9 g/dL (13.5-17.5); Lymphocytes Absolute Auto 1600 /uL (1100-4500); Lymphocytes Percent Auto 43.1 % (25-40); Mean Corpuscular Volume 81.3 fL (80-100); Monocytes Absolute Auto 400 /uL (0-900); Monocytes Percent Auto 10.3 % (3-14); Neutrophils Absolute Auto 1600 /uL (1500-7000); Neutrophils Percent Auto 42.7 % (50-75); Platelet Count 189 X10^3/uL (150-400); Red Blood Cell Count 5.35 X10^6/uL (4.5-5.9); Red Cell Distribution Width 18.8 % (11.6-14.8); White Blood Cell Count 3.7 X10^3/uL (4.5-11.0)
--- NOTE | 2021-08-13 11:36 | P.PNONC_ITS ---
PN -Subjective - Date of Visit Date of visit: 08/13/21 Chief Complaint: Follow-up anemia Interval history: Medardo is a very pleasant 35-year-old gentleman referred for evaluation of leukopenia and anemia. He did have a recent COVID infection/pneumonia prior to his visit on initial consultation. Currently he is feeling well and denies any fevers chills nausea vomiting headaches or blood in the stools. He was started on iron sulfate 325 mg 3 times a day as well as vitamin B12 injections weekly x4 followed by monthly. Presents today for further follow-up after initiating treatment. Currently feels well and has no complaints - Patient Self-Reported Symptoms SR Constitution: Fatigue/Malaise SR ears, nose, mouth, throat issues: Cough SR respiratory issues: Cough SR Cardiovascular issues: Extreme swelling SR Skin issues: Dry skin SR Gastrointestinal issues: Abdominal pain SR Genitourinary issues: Frequent urination SR Musculoskeletal issues: Joint pain or swelling, Muscle weakness, Back or neck pain, Cold hands or feet, Difficulty walking SR Neuro issues: Headache, Difficulty balancing SR Endocrine issues: Excessive thirst Home Medications and Allergies Home Medications Medication Instructions Recorded Confirmed Type omeprazole 20 mg capsule,delayed 20 mg PO QAM 04/04/21 06/18/21 History release famotidine 10 mg/mL intravenous 10 mg BID 05/28/21 06/18/21 History solution Allergies Allergy/AdvReac Type Severity Reaction Status Date / Time Sulfa (Sulfonamide Allergy Unknown Verified 04/04/21 14:34 Antibiotics) [SULFA (SULFONAMIDE ANTIBIOTICS)] promethazine [PROMETHAZINE] AdvReac Unknown Verified 04/04/21 14:34 Exam Vital signs: Intake and Output 08/12/21 08/13/21 08/13/21 23:59 07:59 15:59 Other: Weight 96.8 kg Patient Weight 08/13/21 23:59 Weight 96.8 kg Results - Labs Laboratory Last Values WBC 3.7 X10^3/uL (4.5-11.0) L 08/13/21 11:13 RBC 5.35 X10^6/uL (4.5-5.9) 08/13/21 11:13 Hgb 13.9 g/dL (13.5-17.5) 08/13/21 11:13 Hct 43.5 % (41-53) 08/13/21 11:13 MCV 81.3 fL (80-100) 08/13/21 11:13 MCH 26.0 PG (26-34) 08/13/21 11:13 MCHC 32.0 % (30-36) 08/13/21 11:13 RDW 18.8 % (11.6-14.8) H 08/13/21 11:13 Plt Count 189 X10^3/uL (150-400) 08/13/21 11:13 Neut % (Auto) 42.7 % (50-75) L 08/13/21 11:13 Lymph % (Auto) 43.1 % (25-40) H 08/13/21 11:13 [place] % (Auto) 10.3 % (3-14) 08/13/21 11:13 Eos % (Auto) 2.5 % (2-4) 08/13/21 11:13 Baso % (Auto) 1.4 % (0-2) 08/13/21 11:13 Neut # (Auto) 1600 /uL (5850-0097) 08/13/21 11:13 Lymph # (Auto) 1600 /uL (6586-5786) 08/13/21 11:13 [place] # (Auto) 400 /uL (0-900) 08/13/21 11:13 Eos # (Auto) 100 /uL (0-450) 08/13/21 11:13 Baso # (Auto) 100 /uL (0-100) 08/13/21 11:13 Sodium 144 mmol/L (137-145) 05/28/21 14:57 Potassium 4.4 mmol/L (3.4-5.1) 05/28/21 14:57 Chloride 112 mmol/L (98-107) H 05/28/21 14:57 Carbon Dioxide 28 mmol/L (22-32) 05/28/21 14:57 BUN 7 mg/dL (9-20) L 05/28/21 14:57 Creatinine 0.62 mg/dL (0.66-1.25) L 05/28/21 14:57 Estimated GFR > 60.0 mL/min (>60) 05/28/21 14:57 BUN/Creatinine Ratio 11.3 (6-22) 05/28/21 14:57 Glucose 98 mg/dL (70-100) 05/28/21 14:57 Calcium 8.8 mg/dL (8.4-10.2) 05/28/21 14:57 Iron 52 ug/dL (49-181) 05/28/21 14:57 TIBC 530 ug/dL (261-462) H 05/28/21 14:57 % Saturation 10 % (20-50) L 05/28/21 14:57 Transferrin 430 mg/dL (206-381) H 05/28/21 14:57 Ferritin 5 ng/mL (18-464) L 05/28/21 14:57 Total Bilirubin 0.3 mg/dL (0.2-1.3) 05/28/21 14:57 AST 51 IU/L (17-59) 05/28/21 14:57 ALT 61 IU/L (<50) H 05/28/21 14:57 Alkaline Phosphatase 107 U/L (38-126) 05/28/21 14:57 Lactate Dehydrogenase 544 U/L (313-618) 05/28/21 14:57 Total Protein 6.6 g/dL (6.3-8.2) 05/28/21 14:57 Total Protein (PEP) 6.2 g/dL (6.0-8.5) 05/28/21 14:57 Albumin 3.7 g/dL (3.5-5.0) 05/28/21 14:57 Albumin (PEP) 3.3 g/dL (2.9-4.4) 05/28/21 14:57 Globulin 2.9 g/dL (1.7-4.1) 05/28/21 14:57 Albumin/Globulin Ratio 1.3 (1.0-2.8) 05/28/21 14:57 Albumin/Globulin (PEP) 1.1 (0.7-1.7) 05/28/21 14:57 Xmqyc-0-Ggxrasico 0.3 g/dL (0.0-0.4) 05/28/21 14:57 Lfpzd-3-Cvqzcuupd 0.9 g/dL (0.4-1.0) 05/28/21 14:57 Beta Globulins 1.2 g/dL (0.7-1.3) 05/28/21 14:57 Gamma Globulins 0.6 g/dL (0.4-1.8) 05/28/21 14:57 Gamma Glob/Tot Protein 2.9 g/dL (2.2-3.9) 05/28/21 14:57 M-Sean Not observed g/dL (Not Observed) 05/28/21 14:57 Vitamin B12 204 pg/mL (239-931) L 05/28/21 14:57 Folate 9.2 ng/mL (2.76-20.0) 05/28/21 14:57 Ref Lab Notation Comment (.) 05/28/21 14:57 - Imaging Additional studies: Procedures Introduction of Baricitinib into Mouth and Pharynx, External Approach, [employer] 6 (04/04/21) Introduction of Remdesivir Anti-infective into Peripheral Vein, Percutaneous Breanna charles, [employer] 5 (04/04/21) Assessment and Plan (1) Leukopenia Status: Acute 35 year old male referred for evaluation of leukopenia and anemia after recent covid infection requiring hospitalization. He has recovered from his covid infection but was noted to have abnormalities on his cbc. Lab results today indicate that he does have vitamin B12 deficiency as well as an iron deficiency. He started iron sulfate 325 mg 3 times a day and is also on vitamin B12 injections and has done well on these. Overall his hematocrit breanna ears to have normalized now with good response. We will plan to continue his B12 injections and will continue iron sulfate once daily. Plan to see him back in 6 months Plan Anemia has resolved on iron and B12 injections Vitamin B12 1000 mcg IM weekly x4 then monthly times 12 Return to clinic in 6 months for repeat CBC for ongoing monitoring
[2021-09-03 12:51] VITALS: BP 127/76; PULSE 69; RESP 18; TEMP 36.8; O2SAT 97
[2021-09-03] MEDS: CYANOCOBALAMIN 1,000 MCG/ML VIAL 1000 MCG SUBCUT (12:53)
[2021-10-02 13:01] VITALS: BP 123/70; PULSE 69; RESP 16; TEMP 36.9; O2SAT 100
[2021-10-02] MEDS: CYANOCOBALAMIN 1,000 MCG/ML VIAL 1000 MCG SUBCUT (13:02)
[2021-10-29 13:40] VITALS: BP 123/77; PULSE 71; RESP 16; TEMP 37.3; O2SAT 96
[2021-10-29] MEDS: CYANOCOBALAMIN 1,000 MCG/ML VIAL 1000 MCG SUBCUT (13:47)
[2022-02-25 14:47] VITALS: BP 127/78; PULSE 70; RESP 18; TEMP 36.8; O2SAT 97
--- NOTE | 2022-02-25 15:06 | ONC.PN ---
PN -Subjective - Date of Visit Date of visit: 02/25/22 Chief Complaint: Follow-up anemia Interval history: Medardo is a very pleasant 35-year-old gentleman referred for evaluation of leukopenia and anemia. He did have a recent COVID infection/pneumonia prior to his visit on initial consultation. Currently he is feeling well and denies any fevers chills nausea vomiting headaches or blood in the stools. He was started on iron sulfate 325 mg 3 times a day as well as vitamin B12 injections weekly x4 followed by monthly. Presents today for further follow-up after initiating treatment. Currently feels well and has no complaints. Now on treatment for 6 months with improved energy levels overall. - Patient Self-Reported Symptoms SR Constitution: Fatigue/Malaise SR ears, nose, mouth, throat issues: Cough SR respiratory issues: Cough SR Cardiovascular issues: Extreme swelling SR Skin issues: Dry skin SR Gastrointestinal issues: Heartburn SR Genitourinary issues: Frequent urination SR Musculoskeletal issues: Joint pain or swelling, Muscle weakness, Muscle pain or cramps, Back or neck pain, Cold hands or feet, Difficulty walking SR Neuro issues: Difficulty balancing SR Endocrine issues: Excessive thirst Home Medications and Allergies Home Medications Medication Instructions Recorded Confirmed Type omeprazole 20 mg capsule,delayed 20 mg PO QAM 04/04/21 02/25/22 History release famotidine 10 mg/mL intravenous 10 mg BID 05/28/21 02/25/22 History solution Allergies Allergy/AdvReac Type Severity Reaction Status Date / Time Sulfa (Sulfonamide Allergy Unknown Verified 04/04/21 14:34 Antibiotics) [SULFA (SULFONAMIDE ANTIBIOTICS)] promethazine [PROMETHAZINE] AdvReac Unknown Verified 04/04/21 14:34 Exam Vital signs: Vital Signs Temp Pulse Resp BP Pulse Ox 02/25/22 14:47 98.2 F 70 18 127/78 97 Results - Labs Laboratory Last Values WBC 3.7 X10^3/uL (4.5-11.0) L 08/13/21 11:13 RBC 5.35 X10^6/uL (4.5-5.9) 08/13/21 11:13 Hgb 13.9 g/dL (13.5-17.5) 08/13/21 11:13 Hct 43.5 % (41-53) 08/13/21 11:13 MCV 81.3 fL (80-100) 08/13/21 11:13 MCH 26.0 PG (26-34) 08/13/21 11:13 MCHC 32.0 % (30-36) 08/13/21 11:13 RDW 18.8 % (11.6-14.8) H 08/13/21 11:13 Plt Count 189 X10^3/uL (150-400) 08/13/21 11:13 Neut % (Auto) 42.7 % (50-75) L 08/13/21 11:13 Lymph % (Auto) 43.1 % (25-40) H 08/13/21 11:13 [place] % (Auto) 10.3 % (3-14) 08/13/21 11:13 Eos % (Auto) 2.5 % (2-4) 08/13/21 11:13 Baso % (Auto) 1.4 % (0-2) 08/13/21 11:13 Neut # (Auto) 1600 /uL (4837-6579) 08/13/21 11:13 Lymph # (Auto) 1600 /uL (9446-4393) 08/13/21 11:13 [place] # (Auto) 400 /uL (0-900) 08/13/21 11:13 Eos # (Auto) 100 /uL (0-450) 08/13/21 11:13 Baso # (Auto) 100 /uL (0-100) 08/13/21 11:13 Sodium 144 mmol/L (137-145) 05/28/21 14:57 Potassium 4.4 mmol/L (3.4-5.1) 05/28/21 14:57 Chloride 112 mmol/L (98-107) H 05/28/21 14:57 Carbon Dioxide 28 mmol/L (22-32) 05/28/21 14:57 BUN 7 mg/dL (9-20) L 05/28/21 14:57 Creatinine 0.62 mg/dL (0.66-1.25) L 05/28/21 14:57 Estimated GFR > 60.0 mL/min (>60) 05/28/21 14:57 BUN/Creatinine Ratio 11.3 (6-22) 05/28/21 14:57 Glucose 98 mg/dL (70-100) 05/28/21 14:57 Calcium 8.8 mg/dL (8.4-10.2) 05/28/21 14:57 Iron 52 ug/dL (49-181) 05/28/21 14:57 TIBC 530 ug/dL (261-462) H 05/28/21 14:57 % Saturation 10 % (20-50) L 05/28/21 14:57 Transferrin 430 mg/dL (206-381) H 05/28/21 14:57 Ferritin 5 ng/mL (18-464) L 05/28/21 14:57 Total Bilirubin 0.3 mg/dL (0.2-1.3) 05/28/21 14:57 AST 51 IU/L (17-59) 05/28/21 14:57 ALT 61 IU/L (<50) H 05/28/21 14:57 Alkaline Phosphatase 107 U/L (38-126) 05/28/21 14:57 Lactate Dehydrogenase 544 U/L (313-618) 05/28/21 14:57 Total Protein 6.6 g/dL (6.3-8.2) 05/28/21 14:57 Total Protein (PEP) 6.2 g/dL (6.0-8.5) 05/28/21 14:57 Albumin 3.7 g/dL (3.5-5.0) 05/28/21 14:57 Albumin (PEP) 3.3 g/dL (2.9-4.4) 05/28/21 14:57 Globulin 2.9 g/dL (1.7-4.1) 05/28/21 14:57 Albumin/Globulin Ratio 1.3 (1.0-2.8) 05/28/21 14:57 Albumin/Globulin (PEP) 1.1 (0.7-1.7) 05/28/21 14:57 Gsvvi-9-Qucolamkh 0.3 g/dL (0.0-0.4) 05/28/21 14:57 Dvdqf-5-Lvuavbtjz 0.9 g/dL (0.4-1.0) 05/28/21 14:57 Beta Globulins 1.2 g/dL (0.7-1.3) 05/28/21 14:57 Gamma Globulins 0.6 g/dL (0.4-1.8) 05/28/21 14:57 Gamma Glob/Tot Protein 2.9 g/dL (2.2-3.9) 05/28/21 14:57 M-Sean Not observed g/dL (Not Observed) 05/28/21 14:57 Vitamin B12 204 pg/mL (239-931) L 05/28/21 14:57 Folate 9.2 ng/mL (2.76-20.0) 05/28/21 14:57 Ref Lab Notation Comment (.) 05/28/21 14:57 - Imaging Additional studies: Procedures Introduction of Baricitinib into Mouth and Pharynx, External Approach, [employer] (04/04/21) Introduction of Remdesivir Anti-infective into Peripheral Vein, Percutaneous Approach, [employer] (04/04/21) Assessment and Plan (1) Leukopenia Status: Acute 35 year old male referred for evaluation of leukopenia and anemia after recent covid infection requiring hospitalization. He has recovered from his covid infection but was noted to have abnormalities on his cbc. Lab results today indicate that he does have vitamin B12 deficiency as well as an iron deficiency. He started iron sulfate 325 mg 3 times a day and is also on vitamin B12 injections and has done well on these. Overall his hematocrit appears to have normalized now with good response. With continued improvement in his hematocrit now at 52% he can discontinue his iron and B12. We will plan to monitor him after this and have her return to clinic in 6 months. He does have continued decreases in his hematocrit consideration may be given to further GI workup. He will talk to his primary care provider about this as well. Plan Okay to stop iron and B12 Return to clinic in 6 months for ongoing monitoring of his anemia.
[2022-09-21 16:27] LABS: Add Manual Diff / Slide Review NO; Basophils Absolute Auto 0 /uL (0-100); Basophils Percent Auto 0.6 % (0-2); Eosinophils Absolute Auto 100 /uL (0-450); Eosinophils Percent Auto 1.7 % (2-4); Hemoglobin 15.3 g/dL (13.5-17.5); Lymphocytes Absolute Auto 1400 /uL (1100-4500); Lymphocytes Percent Auto 26.2 % (25-40); Mean Corpuscular HGB Conc 33.2 % (30-36); Mean Corpuscular Hemoglobin 28.9 PG (26-34); Mean Corpuscular Volume 87.1 fL (80-100); Monocytes Absolute Auto 400 /uL (0-900); Monocytes Percent Auto 7.2 % (3-14); Neutrophils Absolute Auto 3500 /uL (1500-7000); Neutrophils Percent Auto 64.3 % (50-75); Platelet Count 214 X10^3/uL (150-400); Red Blood Cell Count 5.28 X10^6/uL (4.5-5.9); White Blood Cell Count 5.5 X10^3/uL (4.5-11.0)
[2022-09-21 16:39] LABS: Alanine Aminotransferase 40 IU/L (<50); Albumin 3.9 g/dL (3.5-5.0); Albumin Globulin Ratio 1.5 (1.0-2.8); Alkaline Phosphatase 118 U/L (38-126); Aspartate Aminotransferase 44 IU/L (17-59); Bilirubin Total 0.4 mg/dL (0.2-1.3); Blood Urea Nitrogen 7 mg/dL (9-20); Calcium 8.9 mg/dL (8.4-10.2); Carbon Dioxide 31 mmol/L (22-32); Chloride 109 mmol/L (98-107); Estimated Glomerular Filt Rate > 60 mL/min (>60); Globulin 2.6 g/dL (1.7-4.1); Glucose 97 mg/dL (70-100); HEMOLYSIS < 15 (0-50); Potassium 4.2 mmol/L (3.4-5.1); Sodium 143 mmol/L (137-145); Total Protein 6.5 g/dL (6.3-8.2)
--- NOTE | 2022-09-23 14:27 | ONC.PN ---
PN -Subjective - Date of Visit Date of visit: 09/23/22 Chief Complaint: Follow-up anemia Interval history: Medardo is a very pleasant 36-year-old gentleman referred for evaluation of leukopenia and anemia. He had a contemporaraneous COVID infection/pneumonia prior to his visit on initial consultation. Currently he is feeling well and denies any fevers chills nausea vomiting headaches or blood in the stools. He was started on iron sulfate 325 mg 3 times a day as well as vitamin B12 injections weekly x4 followed by monthly. Presents today for further follow-up after initiating treatment. Currently feels well and has no complaints. Now on treatment for 6 months with improved energy levels overall. Laboratory studies 09/21/2022 showed total white blood cell count 5.5, hemoglobin 15.3, hematocrit 46%, MCV 87, and platelets [id number]. - Patient Self-Reported Symptoms SR Constitution: Fatigue/Malaise SR ears, nose, mouth, throat issues: Cough SR respiratory issues: Cough SR Cardiovascular issues: Extreme swelling SR Skin issues: Dry skin SR Gastrointestinal issues: Heartburn SR Genitourinary issues: Frequent urination SR Musculoskeletal issues: Joint pain or swelling, Muscle weakness, Muscle pain or cramps, Back or neck pain, Cold hands or feet, Difficulty walking SR Neuro issues: Difficulty balancing SR Endocrine issues: Excessive thirst Home Medications and Allergies Home Medications Medication Instructions Recorded Confirmed Type omeprazole 20 mg capsule,delayed 20 mg PO QAM 04/04/21 02/25/22 History release famotidine 10 mg/mL intravenous 10 mg BID 05/28/21 02/25/22 History solution Allergies Allergy/AdvReac Type Severity Reaction Status Date / Time Sulfa (Sulfonamide Allergy Unknown Verified 04/04/21 14:34 Antibiotics) [SULFA (SULFONAMIDE ANTIBIOTICS)] promethazine [PROMETHAZINE] AdvReac Unknown Verified 04/04/21 14:34 Results - Labs Laboratory Last Values WBC 5.5 X10^3/uL (4.5-11.0) 09/21/22 16:17 RBC 5.28 X10^6/uL (4.5-5.9) 09/21/22 16:17 Hgb 15.3 g/dL (13.5-17.5) 09/21/22 16:17 Hct 46.0 % (41-53) 09/21/22 16:17 MCV 87.1 fL (80-100) 09/21/22 16:17 MCH 28.9 PG (26-34) 09/21/22 16:17 MCHC 33.2 % (30-36) 09/21/22 16:17 RDW 15.0 % (11.6-14.8) H 09/21/22 16:17 Plt Count 214 X10^3/uL (150-400) 09/21/22 16:17 Neut % (Auto) 64.3 % (50-75) 09/21/22 16:17 Lymph % (Auto) 26.2 % (25-40) 09/21/22 16:17 Woodruff % (Auto) 7.2 % (3-14) 09/21/22 16:17 Eos % (Auto) 1.7 % (2-4) L 09/21/22 16:17 Baso % (Auto) 0.6 % (0-2) 09/21/22 16:17 Neut # (Auto) 3500 /uL (6055-9226) 09/21/22 16:17 Lymph # (Auto) 1400 /uL (3034-2610) 09/21/22 16:17 Woodruff # (Auto) 400 /uL (0-900) 09/21/22 16:17 Eos # (Auto) 100 /uL (0-450) 09/21/22 16:17 Baso # (Auto) 0 /uL (0-100) 09/21/22 16:17 Sodium 143 mmol/L (137-145) 09/21/22 16:17 Potassium 4.2 mmol/L (3.4-5.1) 09/21/22 16:17 Chloride 109 mmol/L (98-107) H 09/21/22 16:17 Carbon Dioxide 31 mmol/L (22-32) 09/21/22 16:17 BUN 7 mg/dL (9-20) L 09/21/22 16:17 Creatinine 0.50 mg/dL (0.66-1.25) L 09/21/22 16:17 Estimated GFR > 60 mL/min (>60) 09/21/22 16:17 BUN/Creatinine Ratio 14.0 (6-22) 09/21/22 16:17 Glucose 97 mg/dL (70-100) 09/21/22 16:17 Calcium 8.9 mg/dL (8.4-10.2) 09/21/22 16:17 Iron 52 ug/dL (49-181) 05/28/21 14:57 TIBC 530 ug/dL (261-462) H 05/28/21 14:57 % Saturation 10 % (20-50) L 05/28/21 14:57 Transferrin 430 mg/dL (206-381) H 05/28/21 14:57 Ferritin 5 ng/mL (18-464) L 05/28/21 14:57 Total Bilirubin 0.4 mg/dL (0.2-1.3) 09/21/22 16:17 AST 44 IU/L (17-59) 09/21/22 16:17 ALT 40 IU/L (<50) 09/21/22 16:17 Alkaline Phosphatase 118 U/L (38-126) 09/21/22 16:17 Lactate Dehydrogenase 544 U/L (313-618) 05/28/21 14:57 Total Protein (PEP) 6.2 g/dL (6.0-8.5) 05/28/21 14:57 Total Protein 6.5 g/dL (6.3-8.2) 09/21/22 16:17 Albumin 3.9 g/dL (3.5-5.0) 09/21/22 16:17 Albumin (PEP) 3.3 g/dL (2.9-4.4) 05/28/21 14:57 Albumin/Globulin (PEP) 1.1 (0.7-1.7) 05/28/21 14:57 Globulin 2.6 g/dL (1.7-4.1) 09/21/22 16:17 Ljmig-6-Hojcvsbmc 0.3 g/dL (0.0-0.4) 05/28/21 14:57 Albumin/Globulin Ratio 1.5 (1.0-2.8) 09/21/22 16:17 Twmqn-4-Plqsixudv 0.9 g/dL (0.4-1.0) 05/28/21 14:57 Beta Globulins 1.2 g/dL (0.7-1.3) 05/28/21 14:57 Gamma Globulins 0.6 g/dL (0.4-1.8) 05/28/21 14:57 Gamma Glob/Tot Protein 2.9 g/dL (2.2-3.9) 05/28/21 14:57 M-Sean Not observed g/dL (Not Observed) 05/28/21 14:57 Vitamin B12 204 pg/mL (239-931) L 05/28/21 14:57 Folate 9.2 ng/mL (2.76-20.0) 05/28/21 14:57 Ref Lab Notation Comment (.) 05/28/21 14:57 - Imaging Additional studies: Procedures Introduction of Baricitinib into Mouth and Pharynx, External Approach, [employer] 6 (04/04/21) Introduction of Remdesivir Anti-infective into Peripheral Vein, Percutaneous Approach, [employer] 5 (04/04/21) Assessment and Plan (1) Leukopenia Status: Acute 36 year old male returns for ongoing evaluation of leukopenia and anemia after covid infection requiring hospitalization. He recovered from his covid infection but was noted to have abnormalities on his cbc. He was treated for vitamin B12 deficiency as well as an iron deficiency. He started iron sulfate 325 mg 3 times a day and was also on vitamin B12 injections. Hemoglobin/hematocrit have normalized. Discontinued his iron and B12. Hemoglobin and hematocrit have been maintained, improved. No indication for further treatment evaluation at [facility]. Plan Follow-up with PCP as needed. If in the future he re-developed significant worsening hematologic parameters, restart oral iron and B12 injections. If he still does not improve, return for IV iron infusions.
[2022-09-23 14:29] VITALS: BP 139/85; PULSE 87; RESP 18; TEMP 37; O2SAT 98
== END ==
PROVIDERS: Internal Medicine Medical Oncology; PCP Student in an Organized Health Care Education/Training Program; Referring Provider Student in an Organized Health Care Education/Training Program; Visit Provider Internal Medicine Hematology & Oncology
DX: D50.9 Iron deficiency anemia, unspecified (principal); E53.8 Deficiency of other specified B group vitamins; D72.819 Decreased white blood cell count, unspecified; U09.9 Post COVID-19 condition, unspecified
CPT/HCPCS: 36415; 80053; 82607; 82728; 82746; 83540; 83550; 83615; 84155; 84165; 85025; 96372; 99204; 99214; J3420

== ENCOUNTER → 2023-02-19 11:59 | Outpatient (ROUT) | payer OTHER, MEDICAID, SELFPAY ==
[2021-04-04 18:19] VITALS: BMI 30.6
[2023-02-19 13:26] LABS: Influenza A - CEPHEID Flu A NEGATIVE (NEGATIVE); Influenza B - CEPHEID Flu B NEGATIVE (NEGATIVE); Respiratory Syncytial Virus Negative (Negative)
[2023-02-19 14:10] LABS: COVID-19 CEPHEID 4-PLEX PCR POSITIVE (Negative)
== END ==
PROVIDERS: PCP Family Medicine; Visit Provider Family Medicine
DX: R52 Pain, unspecified (principal); R05.1 Acute cough
CPT/HCPCS: 0241U